=== PATIENT | female | born 1950 | race African-American/Black ===

== ENCOUNTER 2016-10-19 12:25 | Inpatient (IN) | payer OTHER, MEDICARE ==
[~2016-10-19] VITALS: Ht 160 cm; Wt 102.2 kg
--- NOTE | 2016-10-19 12:38 | ED CARDIAC/CP/PALPITATIONS ---
History of Present Illness General Chief Complaint: Chest Pain Stated Complaint: CHEST PAINS X2DAYS Source: patient, old records Exam Limitations: no limitations Allergies Coded Allergies: No Known Allergies (10/19/16) Reconcile Medications Amlodipine Besylate/Benazepril (Amlodipine-Benazepril 5-20 MG) 5 MG-20 MG CAPSULE 1 CAP PO QPM HEART (Reported) Atorvastatin Calcium 20 MG TABLET 1 TAB PO DAILY CHOLESTEROL (Reported) Carvedilol 25 MG TABLET 1 TAB PO BID HEART (Reported) Clopidogrel Bisulfate (Clopidogrel) 75 MG TABLET 1 TAB PO DAILY BLOOD THINNER (Reported) Metformin HCl (Glucophage) 1,000 MG TABLET 1 TAB PO BID DIABETES (Reported) Triage Nurses Notes Reviewed? yes HPI: Patient is a 66-year-old female presents for evaluation of chest pain. Patient reports that she's been having midsternal chest discomfort intermittently for the past 2 weeks. Chest discomfort occurs with exertion, climbing just one half flight of stairs causes onset of chest heaviness. Symptoms improve with rest. Patient reports that over the past 1 week symptoms have been worsening. Patient has associated dyspnea with exertion. Chest pain also worsens with lying flat. Pain is currently 0 out of 10. Patient took 162 mg of aspirin and 1 sublingual nitroglycerin at noon today with improvement. Patient reports bilateral lower extremity edema for a couple of months, no recent change. Chest discomfort feels similar to in 2009 when she had a myocardial infarction requiring cardiac stents. Patient's partition making machine operator is Dr. Hayes. Positive nausea earlier today. Paresthesias to bilateral hands. Denies fevers, chills, diaphoresis, vomiting. (MINERVA PARKS,KEVIN) Vital Signs & Intake/Output Vital Signs & Intake/Output Vital Signs Date Time Temp Pulse Resp B/P Pulse O2 O2 Flow FiO2 Ox Delivery Rate 10/19 1442 97.1 73 18 144/76 97 10/19 1236 98.1 73 20 125/71 97 Room Air Past History Travel History Traveled to [place] past 21 day No Medical History Any Pertinent Medical History? see below for history Cardiovascular: CAD, hypertension, hyperlipidemia, myocardial infarction, 2 STENTS Endocrine: diabetes Influenza Vaccine: 08/07/08 Surgical History Surgical History: cardiac stent x 2 Psychosocial History Who do you live with Spouse Services at Home None What is your primary language Eritrean Tobacco Use: Never used ETOH Use: denies use Illicit Drug Use: denies illicit drug use Family History Hx Contributory? No (KEVIN HARMON) Review of Systems Review of Systems Constitutional: Denies: chills, fever. EENTM: Reports: no symptoms. Respiratory: Reports: short of breath. Denies: cough, sputum production. Cardiovascular: Reports: see HPI. GI: Denies: abdominal pain, vomiting. Genitourinary: Reports: no symptoms. Musculoskeletal: Denies: back pain, neck pain. Skin: Reports: no symptoms. Neurological/Psychological: Reports: paresthesia (bilateral hands). Hematologic/Endocrine: Denies: bruising, bleeding. Immunologic/Allergic: Denies: splenectomy. (KEVIN HARMON) Physical Exam Physical Exam General Appearance: well developed/nourished, alert, awake Head: atraumatic, normal appearance Eyes: Bilateral: normal appearance, PERRL, EOMI. Ears, Nose, Throat: normal pharynx, normal ENT inspection, hearing grossly normal, moist mucus membranes Neck: normal inspection, supple, full range of motion, no appreciable carotid bruit Respiratory: normal breath sounds, chest non-tender, no respiratory distress, lungs clear Cardiovascular: regular rate/rhythm, 2/6 systolic murmur Peripheral Pulses: 2+ radial (R), 2+ radial (L) Gastrointestinal: normal bowel sounds, soft, non-tender Back: normal inspection, normal range of motion Extremities: normal inspection, normal capillary refill, normal range of motion, 1+ bilateral lower extremity edema Neurologic/Psych: no motor/sensory deficits, awake, alert, oriented x 3, normal mood/affect, precinct i police sergeant II-XII nml as tested Skin: intact, normal color, warm/dry Core Measures ACS in differential dx? Yes ASA ordered for poss ACS? Yes-ordered Severe Sepsis Present: No Septic Shock Present: No (KEVIN HARMON) Progress Differential Diagnosis: AMI, aortic dissection, atrial fibrillation, costochondritis, musculoskeletal pain, myocarditis, pericarditis, PSVT, pulmonary embolism, unstable angina, V-fib/V-Tach Diagnostic Imaging: Viewed by Me: Radiology Read. Discussed w/RAD: Radiology Read. Radiology Impression: PATIENT: RAUL MARTINEZ PRESENT AGE: 66 PATIENT ACCOUNT NO: [id number] : 51 LOCATION: [facility] ORDERING PHYSICIAN: KEVIN PARKS SERVICE DATE: 10/19/16-1246 EXAM TYPE: RAD - XRY-PORTABLE CHEST XRAY EXAMINATION: XR PORTABLE CHEST CLINICAL INFORMATION: Chest pain COMPARISON: 09/25/2009 TECHNIQUE: Portable view of the chest was obtained. FINDINGS: Large body habitus. Lungs are symmetrically expanded and clear. Cardiac silhouette is normal in size. The mediastinal and hilar contours are normal. No pneumothorax or pleural effusion. The visualized bones are intact. There appear to be some scattered artifactual opacities on the radiograph. IMPRESSION: No acute cardiopulmonary abnormalities. DICTATED BY: CHARMAINE LY MD DATE/TIME DICTATED:10/19/161316 HOME INSURANCE AGENT:KERRI DATE/TIME TRANSCRIBED:10/19/161316 CONFIDENTIAL, DO NOT COPY WITHOUT APPROPRIATE AUTHORIZATION. <Electronically signed in Other Vendor System> SIGNED BY: CHARMAINE LY MD 10/19/16 1322 Initial ED EKG: normal axis, normal intervals, normal p-waves, normal QRS complex, normal sinus rhythm, no ST T wave changes Prior EKG: changed (had ischemic changes on prior) Rhythm Strip: normal sinus rhythm (MINERVA PARKS,KEVIN) Plan of Care: Orders Procedure Date/time Status Patient Data 10/19 1444 Active Admit to inpatient 10/19 1443 Active Telemetry/Energy Efficiency Finance Manager 10/19 1247 Active TROPONIN LEVEL 10/19 1247 Complete PARTIAL THROMBOPLASTIN TIME 10/19 1247 Complete PROTHROMBIN TIME 10/19 1247 Complete COMPREHENSIVE METABOLIC PANEL 10/19 1247 Complete CBC WITHOUT DIFFERENTIAL 10/19 1247 Complete EKG 10/19 1227 Active Laboratory Tests 10/19/16 1255: Anion Gap 12, Estimated GFR > 60, BUN/Creatinine Ratio 20.0, Glucose 160 H, Calcium 9.4, Total Bilirubin 0.8, AST 17, ALT 27, Alkaline Phosphatase 69, Troponin I < 0.01, Total Protein 7.3, Albumin 3.8, Globulin 3.5, Albumin/ Globulin Ratio 1.1, PT 11.6, INR 1.11, APTT 29, CBC w Diff NO MAN DIFF REQ, RBC 4.50, MCV 87.9, MCH 29.4, RDW 15.2 H, MPV 8.0, Gran % 57.6, Lymphocytes % 33.2, Monocytes % 6.2, Eosinophils % 2.5, Basophils % 0.5, Absolute Granulocytes 2.9, Absolute Lymphocytes 1.6, Absolute Monocytes 0.3, Absolute Eosinophils 0.1, Absolute Basophils 0, PUBS MCHC 33.5 1250: Discussed with Dr. Armenta 1335: Patient resting comfortably, complaint free at this time. Awaiting results of troponin 1350: Evaluated by Dr. Armenta. Dr. Armenta to discuss case with imitation marble mechanic cardiology for disposition Dr. Armenta discussed case with Dr. Feliciano for admission to telemetry (KEVIN HARMON) Departure Departure Time of Disposition: 1506 Disposition: STILL A PATIENT Condition: Stable Clinical Impression Primary Impression: Unstable angina Referrals: SONNY LAINEZ MD (PCP/Family) Departure Forms: Customer Survey General Discharge Information Admission Note Documentation of Exam: Documentation of any treatments & extenuating circumstances including Concerns Regarding Discharge (functional status, medication knowledge or non-compliance, living conditions, etc.) that warrant an admission rather than observation: (KEVIN HARMON) Admission Note Spoke With: SHAMAR FELICIANO MD Documentation of Exam: Documentation of any treatments & extenuating circumstances including Concerns Regarding Discharge (functional status, medication knowledge or non-compliance, living conditions, etc.) that warrant an admission rather than observation: Patient presents with a chest pain syndrome consistent with unstable angina/ acute coronary syndrome. The patient is describing worsening episodes of exertional chest heaviness, she has a past history of coronary artery disease and prior myocardial infarction. Her pains are similar to her prior KS pain. The patient has multiple cardiac risk factors. Given her exertional chest pain I feel she is a poor candidate for outpatient management (I feel the exertion of outpatient treatment could potentially provoke an KS) and now requires hospitalization for continuous cardiac monitoring given the possibility of ischemia associated dysrhythmia and serial troponin determinations to rule out KS. Stress testing or cardiac catheterization should be considered given the patient's past history and clinical presentation. Patient's current medication regimen should be optimized as well. I feel she will require a multiple day hospitalization. PA/PASSPORT SUPPORT MANAGER Co-Sign Statement Statement: ED Attending supervision documentation- [X] I saw and evaluated the patient. I have also reviewed all the pertinent lab results and diagnostic results. I agree with the findings and the plan of care as documented in the PA's/PASSPORT SUPPORT MANAGER's documentation. [] I have reviewed the ED Record and agree with the PA's/PASSPORT SUPPORT MANAGER's documentation. [] Additions or exceptions (if any) to the PAs/PASSPORT SUPPORT MANAGER's note and plan are summarized below: [] (KIRAN MANZANO,MING Colby) Critical Care Note Critical Care Note Critical Care Time: non-applicable (MINERVA PARKS,KEVIN)
--- NOTE | 2016-10-19 12:39 | NUR ---
PT TO ED C/O CHEST PAIN X 2 WEEKS. DESCRIBES "TIGHTNESS" TO LEFT CHEST. ALSO C/O B/L HAND NUMBNESS X A FEW DAYS AND A RECENT HEADACHE. EKG DONE. PT STATES SHE TOOK 2 81MG ASA'S AND 1 SL NITRO AT NOON TODAY. CURRENTLY DENIES C/P. STATES SHE FEELS SOB. NO DIFF BREATHING NOTED. RA SATS 97%. PT TAKEN TO ROOM 1.
[2016-10-19] MEDS ORDERED: CARVEDILOL25 M1 PO (12:54)
[2016-10-19] MEDS ORDERED: GLUCOPHAGE1000 M1 PO (12:55)
[2016-10-19] MEDS ORDERED: ATORVASTATIN CA20 M1 PO (12:55)
[2016-10-19] MEDS ORDERED: CLOPIDOGREL75 M1 PO (12:55)
--- NOTE | 2016-10-19 12:55 | NUR ---
PT EVALUATED BY CHARLY PALMA. BLOOD DRAWN AND SENT TO LAB-SST,CARLOS,THERESA,MERIDA.
[2016-10-19] MEDS ORDERED: AMLODIPINE-BEN1 EAC2 PO (12:56)
[2016-10-19 13:00] LABS: ABSOLUTE BASOPHIL COUNT 0 /CUMM (0.0-0.2); ABSOLUTE EOSINOPHIL COUNT 0.1 /CUMM (0.0-0.7); MEAN CORPUSCULAR HGB 29.4 PG (27.0-31.0); WHITE BLOOD CELL COUNT 4.9 /CUMM (4.8-10.8)
[2016-10-19 13:03] LABS: ABSOLUTE GRANULOCYTE CT 2.9 /CUMM (1.4-6.5); ABSOLUTE LYMPH COUNT 1.6 /CUMM (1.2-3.4); ABSOLUTE MONOCYTE COUNT 0.3 /CUMM (0.10-0.60); BASOPHIL % 0.5 % (0.0-2.0); EOSINOPHIL % 2.5 % (0-5); GRANULOCYTE % 57.6 % (42.2-75.2); HEMATOCRIT 39.6 % (37-47); MEAN CORPUSCULAR HGB CONC 33.5 G/DL (33.0-37.0); MEAN CORPUSCULAR VOLUME 87.9 FL (81.0-99.0); PLATELET COUNT 317 /CUMM (130-400); RBC DISTRIBUTION WIDTH 15.2 % (11.5-14.5)
[2016-10-19 13:18] LABS: PT 11.6 SEC (9.4-12.5); PTT 29 SEC (25-37)
--- NOTE | 2016-10-19 13:22 | RADIOLOGY REPORT ---
EXAMINATION: XR PORTABLE CHEST CLINICAL INFORMATION: Chest pain COMPARISON: 09/25/2009 TECHNIQUE: Portable view of the chest was obtained. FINDINGS: Large body habitus. Lungs are symmetrically expanded and clear. Cardiac silhouette is normal in size. The mediastinal and hilar contours are normal. No pneumothorax or pleural effusion. The visualized bones are intact. There appear to be some scattered artifactual opacities on the radiograph. IMPRESSION: No acute cardiopulmonary abnormalities.
--- NOTE | 2016-10-19 15:28 | NUR ---
PT CARE ASSUMED BY THIS RN AT THIS TIME. PT VERBALIZES UNDERSTANDING OF POC. INFORMED WAITING PERFORMED, PT WAITING FOR BED ASSIGNMENT. OFFERS NO COMPLAINTS AT THIS TIME. REPEAT EKG AND TROPONIN AT 1900.
--- NOTE | 2016-10-19 15:41 | History & Physical ---
See Addendum MAUREEN MANZANO,[facility] 10/19/16 1541: General Information and [facility] MD Statement: I have seen and personally examined THERESA TRUONG and documented this H&P. The patient is a 66 year old F who presented with a patient stated chief complaint of [chest pain and shortness of breath] Source of Information: patient, old records Exam Limitations: no limitations History of Present Illness: Ms. Truong is 66 year old female with chief complaint of chest pain and shortness of breath for 2 weeks. She has past medical history of hypertension, hyperlipidemia, diabetes mellitus type 2, previous RI s/p stent in 2009. The patient started to have chest "pressure discomfort" at the center of her chest that radiated to the left side of chest and neck, pain relieved by rest and chewing 2 tablets of aspirin 81 mg. Patient reported that she started to have this pain for the last 2 weeks on exertion with 2 episodes at rest when she was sleeping and woke up because of the chest pressure pain and tightness, the pain increased in frequency and severity over the past 2 weeks but still less severe than the chest pain RI in 2009. She denied any orthopnea, syncope, dizziness, lightheadedness. The patient didn't seek any medical attention since the onset of her symptoms but today while she was shopping she started to have this chest pain and decided to call her PCP to make an appointment and subsequently he advised her to visit ED for evaluation. She also reported some tingling and numbness sensation in both hands the right side more than the left, she has past medical history of carpal tunnel syndrome that was treated with wrist splint. The patient also reported bilateral leg swelling that started 2 months ago, she has a prescription for furosemide when necessary not frequently using it, she took one dose of furosemide this morning. The patient exercises regularly, trying to do it 3 times per week. She is never a smoker, no alcohol consumption. Allergies/Medications Allergies: Coded Allergies: No Known Allergies (10/19/16) Home Med list Amlodipine Besylate/Benazepril (Amlodipine-Benazepril 5-20 MG) 5 MG-20 MG CAPSULE 1 CAP PO QPM HEART (Reported) Aspirin (Aspirin*) 81 MG TAB.CHEW 1 TAB PO DAILY HEART HEALTH (Reported) Atorvastatin Calcium 20 MG TABLET 1 TAB PO DAILY CHOLESTEROL (Reported) Carvedilol 25 MG TABLET 1 TAB PO BID HEART (Reported) Clopidogrel Bisulfate (Clopidogrel) 75 MG TABLET 1 TAB PO DAILY BLOOD THINNER (Reported) Past History Travel History Traveled to [place] past 21 day No Medical History Cardiovascular: CAD, hypertension, hyperlipidemia, myocardial infarction, 2 STENTS Endocrine: diabetes Influenza Vaccine: 08/07/08 Surgical History Surgical History: cardiac stent x 2 Past Family/Social History Psychosocial History Services at Home: None ETOH Use: denies use Illicit Drug Use: denies illicit drug use Review of Systems Review of Systems Constitutional: Reports: malaise. Denies: chills, fever. EENTM: Denies: blurred vision, hearing changes, nasal congestion. Cardiovascular: Reports: chest pain, edema. Denies: orthopena, palpitations, syncope. Respiratory: Reports: short of breath. Denies: cough, wheezing. GI: Reports: nausea. Denies: abdominal pain, constipation, diarrhea, vomiting. Genitourinary: Denies: dysuria, hematuria. Musculoskeletal: Denies: back pain, joint pain. Skin: Denies: change in skin color, rash. Neurological/Psychological: Reports: headache. Denies: anxiety. Hematologic/Endocrine: Denies: bruising, bleeding. Exam & Diagnostic Data Last 24 Hrs of Vital Signs/I&O Vital Signs Date Time Temp Pulse Resp B/P Pulse O2 O2 Flow FiO2 Ox Delivery Rate 10/19 1442 97.1 73 18 144/76 97 10/19 1236 98.1 73 20 125/71 97 Room Air Intake & Output 10/19 1600 10/19 0800 10/19 0000 Intake Total Output Total Balance Patient 104.326 kg Weight Physical Exam General Appearance Alert, Oriented X3, Cooperative, No Acute Distress Skin No Rashes, No Breakdown, No Significant Lesion HEENT Atraumatic, PERRLA, EOMI, Mucous Membr. moist/pink Neck Supple, No JVD, No thryomegaly Lymphatic no cervical lymphadenopathy Cardiovascular Regular Rate, Normal S1, Normal S2, No Murmurs Lungs Clear to Auscultation, Normal Air Movement Abdomen Normal Bowel Sounds, Soft, No Tenderness Neurological Normal Gait, Normal Speech, Strength at 5/5 X4 Ext, Normal Tone, Sensation Intact, Cranial Nerves 3-12 NL, Reflexes 2+ Extremities No Clubbing, No Cyanosis, trace bilateral periphral edema Vascular Normal Pulses Assessment/Plan Assessment: Ms. Meier is a very pleasant lady with past medical history of hypertension, hyperlipidemia, diabetes mellitus type 2, previous RI status post stent 2009. She presented with chest pain and shortness of breath that started 2 weeks ago and increasing in frequency and severity. On admission her vital signs were temperature 97.1, pulse 73, blood pressure 144 /76, respiratory rate 18 on room air saturation 97% Labs are within normal EKG sinus rhythm 70 bpm Chest x-ray showed no cardiopulmonary abnormality Problem list #Unstable angina vs NSTEMI #Hypertension and hyperlipidemia #Diabetes mellitus 2 #Unstable angina vs NSTEMI -admit to telemetry -Aspirin 81 mg daily -nitroglycrine topical onit -continue Atrovostatin 20 mg daily -continue clopidogril 75 mg daily -start anticoagulation Lovenox -check troponin and EKG Q6 -Obtain echo -Obtain cardic consulation #Hypertension and hyperlipidemia -patient is on amilodipine/Benzopril 5/20 mg daily -continue Atrovostatin 20 mg daily -continue amlodipine 5 mg daily -Start lisinopril 10 mg daily -monitor BP and HR #Diabetes mellitus type 2 -Accu check AC and bedtime -novolog sliding scale -levemir 4 units BID -Last HA1C in was 6 Diet heart healthy diet DVT propholaxis [employer] Code FULL As Ranked By This Provider Problem List: 1. Unstable angina 2. NSTEMI (non-ST elevated myocardial infarction) Core Measures/Miscellaneous Acute Coronary Syndrome ACS Diagnosis: No Cerebrovascular Accident CVA/TIA Diagnosis: No Congestive Heart Failure CHF Diagnosis: No Venous Thromboembolism VTE Risk Factors: Age > 40 VTE Prophylaxis Ordered Inpt: Pharm- Lovenox No [facility] VTE prophylaxis d/t: No contraindications No VTE Pharm Prophylaxis d/t: No contraindications VTE Diagnosis: No VTE Type: NONE VTE Confirmed by (Test): NONE Severe Sepsis Severe Sepsis Present: No Septic Shock Septic Shock Present: No Miscellaneous Documentation Attending Case Discussed With: SHAMAR FELICIANO MD Primary Care Physician: SONNY LAINEZ MD Patient sees these Specialists Cardiology Level of Patient Care: Telemetry HUONG MATA MD 10/19/16 1541: Resident Review Statement Resident Statement: examined this patient, discussed with pharmacist intern, agreed with pharmacist intern, discussed with family, reviewed EMR data (avail), discussed with nursing , discussed with case mgmt, reviewed images, amended to note Other Findings: Theresa is 66-year-old woman with medical history of known coronary artery disease , ST elevation myocardial infarction the past requiring urgent cath (October 2009) with placement of 2 intracardiac stents, dyslipidemia and Type 2 diabetes on metformin who now presents with typical chest pain symptoms that resolved with rest, accompanied by nausea her vital signs are stable. She is afebrile blood pressure is 144/76 meters mercury and she saturating 97% on room air. Physical exam above. Labs are unremarkable, first set of troponin EKG is negative for changes suggestive of ischemia. Given this patient's positive history, she should be ruled out. She does have risk factors including female sex and diabetes as well as known coronary disease and previous infarction. - Problems - Acute chest pain syndrome Stable Angina Known coronary artery disease with previous STEMI Type 2 diabetes - Plan - Continues cardiac monitoring Obtain serial enzymes and EKG Daily aspirin Continue cardiac medications Await cardiology consultation DVT prophylaxis with Lovenox Full code
--- NOTE | 2016-10-19 15:49 | NUR ---
HOUSE STAFF TO BEDSIDE FOR EVAL.
--- NOTE | 2016-10-19 17:17 | NUR ---
PT SITTING UP EATING DINNER AT THIS TIME. CONTINUES NSR ON THE MONITOR, OFFERS NO COMPLAINTS AT THIS TIME.
[2016-10-19] MEDS ORDERED: ASPIRIN81 M4 PO (17:39)
--- NOTE | 2016-10-19 18:10 | Cons- Cardiology ---
General Information and HPI Consulting Request Date of Consult: 10/19/16 Requested By: KEVIN PALMA PA Reason for Consult: Recurrent exertional chest pain. Source of Information: patient, old records Exam Limitations: no limitations History of Present Illness: Mrs. Theresa Armijo is a 66-year-old -[place]er female with a history of obesity, hypertension, dyslipidemia, diabetes mellitus, and coronary artery disease who we are asked to evaluate and help manage in regard to episodes of recurrent chest discomfort. She states that she had been in her usual state of health until approximately 2 weeks ago when she began having recurrent episodes of exertional chest discomfort that would typically resolve within a few minutes of her discontinuing the activity responsible for symptom onset. On a few occasions she also recalls being awakened from sleep with a "heartburn- like" sensation in her chest that would improve after she sat up. This she thinks was different than what she has been experiencing with exertion. On at least one occasion she also had radiation of the discomfort to her neck and to her jaw. She also states that on a few occasions she has awakened with "tingling" in her hands. Mrs. Armijo was admitted to [facility] (09/25-09/26/2009) for recurrent chest discomfort and at that time had no acute electrocardiographic changes, no evidence of myocardial necrosis by serial cardiac enzymes, and a predischarge negative imaging stress test. She again presented to the ED on 10/09/2009 with an acute anterior wall myocardial infarction and was transferred emergently to [facility] where she underwent a percutaneous coronary intervention with drug- eluting stents placed presumably to her left anterior descending artery. Further details of this admission are not presently available. She is routinely followed-up for her cardiac issues by her [place] tube heater (Nathan Devlin M.D.). She states that prior to undergoing uneventful total left knee replacement in March 2016 she had surgical clearance following a negative imaging stress test. Allergies/Medications Allergies: Coded Allergies: No Known Allergies (10/19/16) Home Med List: Amlodipine Besylate/Benazepril (Amlodipine-Benazepril 5-20 MG) 5 MG-20 MG CAPSULE 1 CAP PO QPM HEART (Reported) Aspirin (Aspirin*) 81 MG TAB.CHEW 1 TAB PO DAILY HEART HEALTH (Reported) Atorvastatin Calcium 20 MG TABLET 1 TAB PO DAILY CHOLESTEROL (Reported) Carvedilol 25 MG TABLET 1 TAB PO BID HEART (Reported) Clopidogrel Bisulfate (Clopidogrel) 75 MG TABLET 1 TAB PO DAILY BLOOD THINNER (Reported) Review of Systems Review of Systems: A 14 point system review was obtained and was noncontributory other than for the fact the patient wears glasses, has intermittent bronchitis, intermittent musculoskeletal discomfort, and easy bruisability. Past History Travel History Traveled to [place] past 21 day No Medical History Cardiovascular: CAD, hypertension, hyperlipidemia, myocardial infarction, 2 STENTS Endocrine: diabetes Surgical History Surgical History: hernia repair-inguinal, knee replacement, cardiac stent x 2 Family History Family History Reviewed? Father: smoked and succumbed to lung ca at 76 years. Sister: Suffered a disabling stroke in her 40s. Psychosocial History Where Do You Live? Home Who Do You Live With? spouse Services at Home: None Primary Language: Luxembourger Smoking Status: Never Smoked ETOH Use: occasional use Illicit Drug Use: denies illicit drug use Exam & Diagnostic Data Vital Signs and I&O Vital Signs Date Time Temp Pulse Resp B/P Pulse O2 O2 Flow FiO2 Ox Delivery Rate 10/19 1753 97.8 81 18 141/67 98 Room Air 10/19 1442 97.1 73 18 144/76 97 10/19 1236 98.1 73 20 125/71 97 Room Air Intake & Output 10/19 1600 10/19 0800 10/19 0000 10/18 1600 10/18 0800 10/18 0000 Intake Total Output Total Balance Patient 230 lb Weight Physical Exam: Well-developed, overweight -[place] female in no acute distress with nasal oxygen in place. Vital signs: See above. HEENT: Normocephalic, atraumatic, EOMI, moist. His membranes. Neck: No JVD, no bruits. Lungs: Clear to auscultation bilaterally. Heart: S1, S2 with soft (grade 1/6) systolic murmur. No gallop or rub appreciated. PMI not well felt. Abdomen: Soft, nontender, positive bowel sounds. Extremities: No edema. Labs/Davide Results: Laboratory Tests 10/19 1255 Chemistry Sodium (137 - 145 mmol/L) 140 Potassium (3.5 - 5.1 mmol/L) 3.9 Chloride (98 - 107 mmol/L) 99 Carbon Dioxide (22 - 30 mmol/L) 29 Anion Gap (5 - 16) 12 BUN (7 - 17 mg/dL) 16 Creatinine (0.5 - 1.0 mg/dL) 0.8 Estimated GFR (>60 ml/min) > 60 BUN/Creatinine Ratio (7 - 25 %) 20.0 Glucose (65 - 99 mg/dL) 160 H Calcium (8.4 - 10.2 mg/dL) 9.4 Total Bilirubin (0.2 - 1.3 mg/dL) 0.8 AST (14 - 36 U/L) 17 ALT (9 - 52 U/L) 27 Alkaline Phosphatase (<127 U/L) 69 Troponin I (< 0.11 ng/ml) < 0.01 Total Protein (6.3 - 8.2 g/dL) 7.3 Albumin (3.5 - 5.0 g/dL) 3.8 Globulin (1.9 - 4.2 gm/dL) 3.5 Albumin/Globulin Ratio (1.1 - 2.2 %) 1.1 Coagulation PT (9.4 - 12.5 SEC) 11.6 INR (0.90 - 1.19) 1.11 APTT (25 - 37 SEC) 29 Hematology CBC w Diff NO MAN DIFF REQ WBC (4.8 - 10.8 /CUMM) 4.9 RBC (4.20 - 5.40 /CUMM) 4.50 Hgb (12.0 - 16.0 G/DL) 13.2 Hct (37 - 47 %) 39.6 MCV (81.0 - 99.0 FL) 87.9 MCH (27.0 - 31.0 PG) 29.4 RDW (11.5 - 14.5 %) 15.2 H Plt Count (130 - 400 /CUMM) 317 MPV (7.4 - 10.4 FL) 8.0 Gran % (42.2 - 75.2 %) 57.6 Lymphocytes % (20.5 - 51.1 %) 33.2 Monocytes % (1.7 - 9.3 %) 6.2 Eosinophils % (0 - 5 %) 2.5 Basophils % (0.0 - 2.0 %) 0.5 Absolute Granulocytes (1.4 - 6.5 /CUMM) 2.9 Absolute Lymphocytes (1.2 - 3.4 /CUMM) 1.6 Absolute Monocytes (0.10 - 0.60 /CUMM) 0.3 Absolute Eosinophils (0.0 - 0.7 /CUMM) 0.1 Absolute Basophils (0.0 - 0.2 /CUMM) 0 PUBS MCHC (33.0 - 37.0 G/DL) 33.5 Diagnostic Data EKG Results (10/19/2016) sinus rhythm, probable old anteroseptal wall myocardial infarction. Improved since previous tracing (10/09/2009). CXR Results (10/19/2016) no acute process. Assessment/Plan Assessment/Plan Unstable angina pectoris in this 66-year-old -[place] female with a history of known coronary artery disease s/p anterior STEMI 10/09/2009 with PCI (DESx2 to LAD) with a risk equivalent/multiple risk factors for coronary artery disease. The discomfort she has been having on occasion that awakens her from sleep and improves following her sitting up, sounds more consistent with gastroesophageal reflux. Recommendations: * Agree with the need for observation on telemetry, follow-up troponins, follow- up electrocardiograms. * We will contact her tube heater (Nathan Devlin M.D.) to determine if he will accept transfer from our facility to either [facility] or [facility] for further evaluation/management after her preliminary evaluation/management. * Would start on IV Heparin (or enoxaparin). * Continue on the rest of her cardiac regimen (statin, antiplatelet, MICHAEL inhibitor, and beta devaughn). * Schedule for echocardiogram to assess left ventricular systolic/diastolic function, degree of left ventricular hypertrophy, wall motion abnormalities, etc. * Check glycosylated hemoglobin A1c, free T4, TSH, and magnesium level. * Aim to maintain her potassium between 4.0-4.5 mEq per liter and magnesium at or above 2.0 mEq per liter. * IV Heparin will additionally serve as prophylaxis for deep venous thrombosis. Further recommendations will follow, Thank you. Consult Acknowledgment - Thank you for your consult request.
[2016-10-19 18:54] VITALS: BP 130/70
[2016-10-19 23:52] VITALS: BP 118/78
--- NOTE | 2016-10-20 06:39 | PN- Housestaff ---
Subjective Follow-up For: Acute chest pain syndrome Stable Angina Known coronary artery disease with previous STEMI Type 2 diabetes Subjective: Doing well. No acute complaints or events overnight. Review of Systems Constitutional: Denies: see HPI. Objective Last 24 Hrs of Vital Signs/I&O Vital Signs Date Time Temp Pulse Resp B/P Pulse O2 O2 Flow FiO2 Ox Delivery Rate 10/19 2352 98.7 71 18 118/78 96 Room Air 10/19 2146 83 10/19 1854 98.5 76 18 130/70 95 10/19 1834 Room Air 10/19 1753 97.8 81 18 141/67 98 Room Air 10/19 1442 97.1 73 18 144/76 97 10/19 1236 98.1 73 20 125/71 97 Room Air Intake & Output 10/20 0800 10/20 0000 10/19 1600 Intake Total 60 490 Output Total Balance 60 490 Intake, IV 10 10 Intake, Oral 50 480 Patient 230 lb 230 lb Weight Physical Exam General Appearance: Alert, Oriented X3, Cooperative Other Physical Findings: Skin No Rashes, No Breakdown, No Significant Lesion HEENT Atraumatic, PERRLA, EOMI, Mucous Membr. moist/pink Neck Supple, No JVD, No thryomegaly Lymphatic no cervical lymphadenopathy Cardiovascular Regular Rate, Normal S1, Normal S2, No Murmurs Lungs Clear to Auscultation, Normal Air Movement Abdomen Normal Bowel Sounds, Soft, No Tenderness Neurological Normal Gait, Normal Speech, Strength at 5/5 X4 Ext, Normal Tone, Sensation Intact, Cranial Nerves 3-12 NL, Reflexes 2+ Extremities No Clubbing, No Cyanosis, trace bilateral periphral edema Vascular Normal Pulses Current Medications: Current Medications Sig/Isabelle Start time Last Medication Dose Route Stop Time Status Admin Acetaminophen 650 MG Q6P PRN 10/19 1530 AC PO Amlodipine Besylate 5 MG DAILY 10/20 1000 AC PO Aspirin 81 MG DAILY 10/20 1000 AC PO Aspirin 0 .STK-MED ONE 10/19 1313 DC PO Aspirin 162 MG ONCE ONE 10/19 1300 DC 10/19 PO 10/19 1301 1320 Atorvastatin Calcium 20 MG DAILY 10/20 1000 AC PO Carvedilol 25 MG BID 10/19 2200 AC 10/19 PO 2146 Clopidogrel Bisulfate 75 MG DAILY 10/20 1000 AC PO Diphenhydramine HCl 25 MG Q6P PRN 10/19 1530 AC PO Docusate Sodium 100 MG BID 10/19 2200 AC PO Enoxaparin Sodium 0 .STK-MED ONE 10/19 1652 DC SC Enoxaparin Sodium 40 MG DAILY 10/19 1522 AC SC Insulin Aspart 0 TIDAC 10/19 1700 AC SC Insulin Detemir 5 UNITS BID 10/19 2200 AC 10/19 SC 2146 Ketorolac 15 MG Q6P PRN 10/19 1530 AC Tromethamine IV Lisinopril 10 MG DAILY 10/20 1000 AC PO Metformin HCl 1,000 MG BID 10/19 2200 CAN PO Morphine Sulfate 4 MG Q4P PRN 10/19 1530 AC IV Nitroglycerin 1 GM Q6 PRN 10/19 1600 AC TOP Polyethylene Glycol 17 GM AT BEDTIME 10/19 2200 AC PO Prochlorperazine 10 MG Q6P PRN 10/19 1530 AC IV Senna/Docusate Sodium 1 TAB AT BEDTIME 10/19 2200 AC PO Last 24 Hrs of Lab/Davide Results Last 24 Hrs of Labs/Mics: Laboratory Tests 10/20/16 0138: Troponin I < 0.01 10/19/16 1935: Troponin I < 0.01 10/19/16 1255: Anion Gap 12, Estimated GFR > 60, BUN/Creatinine Ratio 20.0, Glucose 160 H, Calcium 9.4, Total Bilirubin 0.8, AST 17, ALT 27, Alkaline Phosphatase 69, Troponin I < 0.01, Total Protein 7.3, Albumin 3.8, Globulin 3.5, Albumin/ Globulin Ratio 1.1, PT 11.6, INR 1.11, APTT 29, CBC w Diff NO MAN DIFF REQ, RBC 4.50, MCV 87.9, MCH 29.4, RDW 15.2 H, MPV 8.0, Gran % 57.6, Lymphocytes % 33.2, Monocytes % 6.2, Eosinophils % 2.5, Basophils % 0.5, Absolute Granulocytes 2.9, Absolute Lymphocytes 1.6, Absolute Monocytes 0.3, Absolute Eosinophils 0.1, Absolute Basophils 0, PUBS MCHC 33.5 Assessment/Plan Assessment: Theresa is 66-year-old woman with medical history of known coronary artery disease , ST elevation myocardial infarction the past requiring urgent cath (October 2009) with placement of 2 intracardiac stents, dyslipidemia and Type 2 diabetes on metformin who now presents with typical chest pain symptoms that resolved with rest, accompanied by nausea her vital signs are stable. She is afebrile blood pressure is 144/76 meters mercury and she saturating 97% on room air. Physical exam above. Labs are unremarkable, first set of troponin EKG is negative for changes suggestive of ischemia. Given this patient's positive history, she should be ruled out. She does have risk factors including female sex and diabetes as well as known coronary disease and previous infarction. Enzymes and EKGs - x 3. No sx. Labs pending this am. - Problems - Acute chest pain syndrome Stable Angina Known coronary artery disease with previous STEMI Type 2 diabetes - Plan - Continues cardiac monitoring Daily aspirin F/u labs Continue cardiac medications Await cardiology consultation and formal recs Anticipate DC soon DVT prophylaxis with Lovenox Full code Problem List: 1. Angina pectoris Pain Ratin Pain Location: n/a Pain Goal: Pain 7 or less Pain Plan: n/a Tomorrow's Labs & Rationales: n/a
[2016-10-20 08:27] VITALS: BP 124/70
[2016-10-20 16:08] VITALS: BP 100/68
--- NOTE | 2016-10-20 19:36 | PN- Cardiology ---
Subjective Subjective: No complaints and denies any further exertional anginal type discomfort, but has been relatively sedentary since admission. Objective Vital Signs and I&Os Vital Signs Date Time Temp Pulse Resp B/P Pulse O2 O2 Flow FiO2 Ox Delivery Rate 10/20 1608 98.0 68 18 100/68 95 Room Air 10/20 0940 64 124/70 10/20 0939 64 124/70 10/20 0939 64 124/70 10/20 0827 97.6 64 18 124/70 94 Room Air 10/20 0800 Room Air 10/19 2352 98.7 71 18 118/78 96 Room Air 10/19 2146 83 Intake & Output 10/20 1600 10/20 0800 10/20 0000 10/19 1600 10/19 0800 10/19 0000 Intake Total 600 60 490 Output Total Balance 600 60 490 Intake, IV 10 10 Intake, Oral 600 50 480 Patient 230 lb 230 lb Weight Physical Exam: Well-developed, overweight -[place] female in no acute distress with nasal oxygen in place. Vital signs: See above. HEENT: Normocephalic, atraumatic, EOMI, moist. His membranes. Neck: No JVD, no bruits. Lungs: Clear to auscultation bilaterally. Heart: S1, S2 with soft (grade 1/6) systolic murmur. No gallop or rub appreciated. PMI not well felt. Abdomen: Soft, nontender, positive bowel sounds. Extremities: No edema. Current Medications: Current Medications Sig/Isabelle Start time Last Medication Dose Route Stop Time Status Admin Acetaminophen 650 MG Q6P PRN 10/19 1530 AC PO Amlodipine Besylate 5 MG DAILY 10/20 1000 AC 10/20 PO 0939 Aspirin 81 MG DAILY 10/20 1000 AC 10/20 PO 0938 Atorvastatin Calcium 20 MG DAILY 10/20 1000 AC 10/20 PO 0939 Carvedilol 25 MG BID 10/19 2200 AC 10/20 PO 0939 Clopidogrel Bisulfate 75 MG DAILY 10/20 1000 AC 10/20 PO 0940 Diphenhydramine HCl 25 MG Q6P PRN 10/19 1530 AC PO Docusate Sodium 100 MG BID 10/19 2200 AC PO Enoxaparin Sodium 40 MG DAILY 10/19 1522 DC SC Heparin Sodium 5,000 UNIT ONCE ONE 10/20 1630 DC 10/20 (Porcine) IV 10/20 1631 1727 Heparin Sodium 25,000 UNIT Q24H 10/20 1630 AC 10/20 (Porcine) IV 1734 Sodium Chloride 500 ML Insulin Aspart 0 TIDAC 10/19 1700 AC 10/20 SC 1727 Insulin Detemir 5 UNITS BID 10/19 2200 AC 10/20 SC 0939 Ketorolac 15 MG Q6P PRN 10/19 1530 AC Tromethamine IV Lisinopril 10 MG DAILY 10/20 1000 AC 10/20 PO 0940 Magnesium Oxide 400 MG ONE ONE 10/20 1615 DC 10/20 PO 10/20 1616 1736 Morphine Sulfate 4 MG Q4P PRN 10/19 1530 AC IV Nitroglycerin 1 GM Q6 PRN 10/19 1600 AC TOP Polyethylene Glycol 17 GM AT BEDTIME 10/19 2200 AC PO Prochlorperazine 10 MG Q6P PRN 10/19 1530 AC IV Senna/Docusate Sodium 1 TAB AT BEDTIME 10/19 2200 AC PO Results Last 48 Hrs of Labs/Mics: Laboratory Tests 10/20/16 0700: Anion Gap 11, Estimated GFR > 60, BUN/Creatinine Ratio 17.5, Magnesium 1.4 L, Troponin I < 0.01 10/20/16 0138: Troponin I < 0.01 10/19/16 1935: Troponin I < 0.01 10/19/16 1255: Anion Gap 12, Estimated GFR > 60, BUN/Creatinine Ratio 20.0, Glucose 160 H, Calcium 9.4, Total Bilirubin 0.8, AST 17, ALT 27, Alkaline Phosphatase 69, Troponin I < 0.01, Total Protein 7.3, Albumin 3.8, Globulin 3.5, Albumin/ Globulin Ratio 1.1, PT 11.6, INR 1.11, APTT 29, CBC w Diff NO MAN DIFF REQ, RBC 4.50, MCV 87.9, MCH 29.4, RDW 15.2 H, MPV 8.0, Gran % 57.6, Lymphocytes % 33.2, Monocytes % 6.2, Eosinophils % 2.5, Basophils % 0.5, Absolute Granulocytes 2.9, Absolute Lymphocytes 1.6, Absolute Monocytes 0.3, Absolute Eosinophils 0.1, Absolute Basophils 0, PUBS MCHC 33.5 Assessment/Plan Assessment/Plan Unstable angina pectoris in this 66-year-old -[place] female with a history of known coronary artery disease s/p anterior STEMI 10/09/2009 with PCI (DESx2 to LAD) with a risk equivalent/multiple risk factors for coronary artery disease. Fortunately, troponins did not suggest any evidence of myocardial necrosis and her electrocardiograms have shown no acute ischemic changes. Recommendations: * Continue on telemetry. * We will contact her district plant engineer (Nathan Devlin M.D.) to determine if he will accept transfer from our facility to either [facility] or [facility] for further evaluation/management after her preliminary evaluation/management. * Continue on IV Heparin (or enoxaparin). * Continue on the rest of her cardiac regimen (statin, antiplatelet, MICHAEL inhibitor, and beta devaughn). * Schedule for echocardiogram to assess left ventricular systolic/diastolic function, degree of left ventricular hypertrophy, wall motion abnormalities, etc. * Check glycosylated hemoglobin A1c, free T4, TSH, and magnesium level. * Aim to maintain her potassium between 4.0-4.5 mEq per liter and magnesium at or above 2.0 mEq per liter. Continue telemetry? Yes
[2016-10-20 22:00] VITALS: BP 130/80
[2016-10-21 00:15] LABS: PTT 75 SEC (25-37)
--- NOTE | 2016-10-21 07:51 | PN- Housestaff ---
See Addendum Subjective Follow-up For: Acute chest pain syndrome Stable Angina Known coronary artery disease with previous STEMI Type 2 diabetes Tele-Events Since Last Visit: Atrial fibrillation, converted to sinus tachycardia at 3:06 AM flutter, fibrillation, sinus Sinus tachycardia since 16 00 93-135 no overnight events Subjective: Ms Truong was seen and examined this morning resting comfortably seated upright in bed. Patient states she was comfortable overnight however woke up at approximately 2 AM was woken with significant left-sided chest pain. Chest pain episode lasted approximately 1 hour and has subsequently resolved. Pain was an 8 out of 10 in severity describes a pressure/crushing pain. Patient did not report pain to any of the nursing staff. Currently patient is pain-free. Patient denies any fever, chills, nausea, vomiting. Review of Systems Constitutional: Reports: see HPI. Denies: chills, diaphoresis, fever. Objective Last 24 Hrs of Vital Signs/I&O Vital Signs Date Time Temp Pulse Resp B/P Pulse O2 O2 Flow FiO2 Ox Delivery Rate 10/21 0802 97.6 62 20 160/80 94 Room Air 10/21 0800 Room Air 10/20 2254 67 130/80 10/20 2200 98.4 67 20 130/80 97 Room Air 10/20 1608 98.0 68 18 100/68 95 Room Air 10/20 0940 64 124/70 10/20 0939 64 124/70 10/20 0939 64 124/70 Intake & Output 10/21 1600 10/21 0800 10/21 0000 Intake Total 100 965 Output Total Balance 100 965 Intake, IV 45 Intake, Oral 100 920 Patient 102.228 kg Weight Physical Exam General Appearance: Alert, Oriented X3, Cooperative Cardiovascular: Normal S1, Normal S2, No Murmurs Lungs: Clear to Auscultation Abdomen: Normal Bowel Sounds, Soft, No Tenderness Neurological: Normal Speech, Strength at 5/5 X4 Ext Current Medications: Current Medications Sig/Isabelle Start time Last Medication Dose Route Stop Time Status Admin Acetaminophen 650 MG Q6P PRN 10/19 1530 AC PO Amlodipine Besylate 5 MG DAILY 10/20 1000 AC 10/21 PO 1020 Aspirin 81 MG DAILY 10/20 1000 AC 10/21 PO 1020 Atorvastatin Calcium 20 MG DAILY 10/20 1000 AC 10/21 PO 1020 Carvedilol 25 MG BID 10/19 2200 AC 10/21 PO 1020 Clopidogrel Bisulfate 75 MG DAILY 10/20 1000 AC 10/21 PO 1020 Diphenhydramine HCl 25 MG Q6P PRN 10/19 1530 AC PO Docusate Sodium 100 MG BID 10/19 2200 AC 10/21 PO 1020 Enoxaparin Sodium 40 MG DAILY 10/19 1522 DC SC Heparin Sodium 5,000 UNIT ONCE ONE 10/20 1630 DC 10/20 (Porcine) IV 10/20 1631 1727 Heparin Sodium 25,000 UNIT Q24H 10/20 1630 AC 10/20 (Porcine) IV 1734 Sodium Chloride 500 ML Insulin Aspart 0 TIDAC 10/19 1700 AC 10/21 SC 0806 Insulin Detemir 5 UNITS BID 10/19 2200 AC 10/21 SC 1021 Ketorolac 15 MG Q6P PRN 10/19 1530 AC Tromethamine IV Lisinopril 10 MG DAILY 10/20 1000 AC 10/21 PO 1020 Magnesium Oxide 400 MG ONE ONE 10/20 1615 DC 10/20 PO 10/20 1616 1736 Magnesium Sulfate 1 GM Q2H 10/21 1000 AC 10/21 Dextrose/Water 100 ML IV 10/21 1359 1156 Morphine Sulfate 4 MG Q4P PRN 10/19 1530 AC IV Nitroglycerin 1 GM Q6 PRN 10/19 1600 AC TOP Polyethylene Glycol 17 GM AT BEDTIME 10/19 2200 AC PO Potassium Chloride 40 MEQ ONCE ONE 10/21 1000 DC 10/21 PO 10/21 1001 1129 Prochlorperazine 10 MG Q6P PRN 10/19 1530 AC IV Senna/Docusate Sodium 1 TAB AT BEDTIME 10/19 2200 AC PO Last 24 Hrs of Lab/Davide Results Last 24 Hrs of Labs/Mics: Laboratory Tests 10/21/16 1100: APTT 80 H 10/21/16 0700: Hemoglobin A1c Pending 10/21/16 0700: Anion Gap 12, Estimated GFR > 60, BUN/Creatinine Ratio 17.5, Magnesium 1.6, TSH 3.430, Free T4 1.05 10/20/16 2330: APTT 75 H Assessment/Plan Assessment: Theresa is 66-year-old woman with medical history of known coronary artery disease , ST elevation myocardial infarction the past requiring urgent cath (October 2009) with placement of 2 intracardiac stents, dyslipidemia and Type 2 diabetes on metformin who now presents with typical chest pain symptoms that resolved with rest, accompanied by nausea her vital signs are stable. She is afebrile blood pressure is 144/76 meters mercury and she saturating 97% on room air. Physical exam above. Labs are unremarkable, first set of troponin EKG is negative for changes suggestive of ischemia. Given this patient's positive history, she should be ruled out. She does have risk factors including female sex and diabetes as well as known coronary disease and previous infarction. She was encouraged to notify us if she developed any additional pain. Spoke with the cardiology service recommended a pharmacological stress test to be done at [facility]. This can be considered on 10/22/2016. Patient was given potassium chloride 40 mEq and magnesium sulfate to ensure her electrolytes were within normal physiological limits. Enzymes and EKGs - x 3. No sx. Labs pending this am. - Problems - Acute chest pain syndrome Stable Angina Known coronary artery disease with previous STEMI Type 2 diabetes - Plan - Continues cardiac monitoring Daily aspirin F/u labs Continue cardiac medications Await cardiology consultation and formal recs Anticipate DC soon DVT prophylaxis with Lovenox Full code Problem List: 1. Angina pectoris 2. Unstable angina 3. NSTEMI (non-ST elevated myocardial infarction) Pain Ratin Pain Location: No Pain Reported Pain Goal: Remain pain free Pain Plan: Tylenol PRN Nirtoglycerine Tomorrow's Labs & Rationales: BEP: Monitor K Magnesium: Monitor Magnesium
[2016-10-21 08:02] VITALS: BP 160/80
[2016-10-21 11:26] LABS: PTT 80 SEC (25-37)
--- NOTE | 2016-10-21 14:44 | Event Note ---
Event Note Event Note: Following recommendations from sliver lap tender note 10/20/2006. I contacted the office of Dr. Vallecillo and requested a call back. Dr. Santillan partner of Dr. Vallecillo recommended that the patient need not be transferred at the moment to [facility], however he recomended the patinet have a pahrmacological stress test while admitted at [facility]. Resident was made aware We will follow up to wait for cardiac recommendations on 10/21/2016.
[2016-10-21 16:00] VITALS: BP 112/80
[2016-10-21 23:14] LABS: PTT 93 SEC (25-37)
[2016-10-21 23:54] VITALS: BP 110/66
[2016-10-22 05:54] LABS: PTT 63 SEC (25-37)
[2016-10-22 08:08] VITALS: BP 116/60
--- NOTE | 2016-10-22 08:36 | PN- Housestaff ---
Subjective Follow-up For: Acute chest pain syndrome Unstable Angina Known coronary artery disease with previous STEMI Type 2 diabetes Tele-Events Since Last Visit: Sinus rhythm Heart rate 69-87 BBB No evidence Subjective: Patient was seen and examined this morning, she didn't report any chest pain overnight although she had some chest pain that woke her up the night before. She slept well with no complaint, denied any shortness of breath, dizziness, lightheadedness, nausea. Vital signs are stable. No overnight events reported by the nurses. Review of Systems Constitutional: Denies: no symptoms. Objective Last 24 Hrs of Vital Signs/I&O Vital Signs Date Time Temp Pulse Resp B/P Pulse O2 O2 Flow FiO2 Ox Delivery Rate 10/22 09 75 116/60 10/22 0921 75 116/60 10/22 0921 75 116/60 10/22 0808 98.1 75 18 116/60 96 Room Air 10/22 0800 Room Air 10/21 2354 97.5 69 12 110/66 95 Room Air 10/21 2136 89 10/21 1600 97.9 63 18 112/80 93 Room Air Intake & Output 10/22 1600 10/22 0800 10/22 0000 Intake Total 367.2 1419 Output Total Balance 367.2 1419 Intake, IV 127.2 354 Intake, Oral 240 1065 Physical Exam General Appearance: Alert, Oriented X3, Cooperative, No Acute Distress Skin: No Rashes, No Breakdown, No Significant Lesion HEENT: Atraumatic, PERRLA, EOMI, Mucous Membr. moist/pink Neck: Supple, No JVD Cardiovascular: Regular Rate, Normal S1, Normal S2, No Murmurs Lungs: Clear to Auscultation, Normal Air Movement Abdomen: Normal Bowel Sounds, Soft, No Tenderness Neurological: Normal Gait, Normal Speech, Strength at 5/5 X4 Ext, Normal Tone, Sensation Intact, Cranial Nerves 3-12 NL, Reflexes 2+ Extremities: No Clubbing, No Cyanosis, right trace edema Left +1 edema Assessment/Plan Assessment: Ms. Meier is a very pleasant lady with past medical history of hypertension, hyperlipidemia, diabetes mellitus type 2, previous VT status post stent 2009. She presented with chest pain and shortness of breath that started 2 weeks ago and increasing in frequency and severity. on admission EKG sinus rhythm 70 bpm Chest x-ray showed no cardiopulmonary abnormality Problem list #Unstable angina vs NSTEMI #Hypertension and hyperlipidemia #Diabetes mellitus 2 #Unstable angina vs NSTEMI -continue telemetry -Nuclear stress test was ordered, and patient will have the resting part done today and the stress part tomorrow -Continue heparin drip -Continue carvedilol 25 mg twice a day by mouth -Continue Aspirin 81 mg daily -Continue clopidogril 75 mg daily -Continue nitroglycerin ointment 1 g every 6 when necessary for chest pain -Maintain potassium 4 to 4.5, MG 2 or above #Hypertension and hyperlipidemia -continue Atrovostatin 20 mg daily -continue amlodipine 5 mg daily -Continue lisinopril 10 mg daily #Diabetes mellitus type 2 -Accu check AC and bedtime -novolog sliding scale -levemir 5 units BID -Last HA1C in [place] was 6 -Follow up hemoglobin A1c Diet heart healthy diet, NPO at midnight for stress test DVT propholaxis Heparin drip Code FULL Problem List: 1. Unstable angina Pain Ratin Pain Location: n/a Pain Goal: Remain pain free Pain Plan: see medication Tomorrow's Labs & Rationales: CBC, CMP
--- NOTE | 2016-10-22 12:36 | PN- Cardiology ---
Subjective Subjective: No further chest discomfort. Also denies any palpitations or shortness of breath. Objective Vital Signs and I&Os Vital Signs Date Time Temp Pulse Resp B/P Pulse O2 O2 Flow FiO2 Ox Delivery Rate 10/22 09 75 116/60 10/22 09 75 116/60 10/22 09 75 116/60 10/22 0808 98.1 75 18 116/60 96 Room Air 10/22 0800 Room Air 10/21 2354 97.5 69 12 110/66 95 Room Air 10/21 2136 89 10/21 1600 97.9 63 18 112/80 93 Room Air Intake & Output 10/22 1600 10/22 0800 10/22 0000 10/21 1600 10/21 0800 10/21 0000 Intake Total 367.2 1419 1300 100 965 Output Total Balance 367.2 1419 1300 100 965 Intake, IV 127.2 354 320 45 Intake, Oral 240 1065 980 100 920 Patient 225 lb Weight Physical Exam: Well-developed, overweight -[place] female in no acute distress. Vital signs: See above. Lungs: Clear to auscultation. Heart: S1, S2 with no murmur, gallop, rub appreciated. PMI not well felt. Abdomen: Soft, nontender, positive bowel sounds. Extremities: No edema. Assessment/Plan Assessment/Plan Suspected unstable angina pectoris in this 66-year-old -Maced[place] female with a history of known coronary artery disease s/p anterior STEMI 10/09/2009 with PCI (DESx2 to LAD) with a risk equivalent/multiple risk factors for coronary artery disease. Fortunately, serial troponins negative for myocardial necrosis and her electrocardiograms have shown no acute ischemic changes. Recommendations: * Continue on telemetry. * Will plan for a nuclear exercise stress test. Rest images to be formed today and stress images tomorrow morning. * Will contact her assistant passenger locomotive engineer (Nathan Devlin M.D.) with the results of the stress test so that further evaluation and management can follow. * Continue on IV Heparin (or enoxaparin). * Continue on the rest of her cardiac regimen (statin, antiplatelet, MICHAEL inhibitor, and beta devaughn). * We will follow-up on echocardiogram to assess left ventricular systolic/ diastolic function, degree of left ventricular hypertrophy, wall motion abnormalities, etc. * Check glycosylated hemoglobin A1c. * Aim to maintain her potassium between 4.0-4.5 mEq per liter and magnesium at or above 2.0 mEq per liter. * Continue prophylaxis for deep vein thrombosis. Continue telemetry? Yes
[2016-10-22 15:48] VITALS: BP 122/60
[2016-10-22 19:48] LABS: PTT 49 SEC (25-37)
[2016-10-22 22:58] VITALS: BP 126/72
--- NOTE | 2016-10-23 01:59 | Event Note ---
Event Note Event Note: Situation: Chest Pain while at rest, left sided (not retrosternal) , radiating to the left arm and jaw. No diaphoresis, nausea or vomiting. Brief Assement * VS: BP 130/80, HR 72, 02:97% (RA), T 98.9, RR 20 * Physical Exam: AO3, NAD, CV: non rmerkable, Resp: CTA B/L * Resolution of pain after NTG administation * Non elevated trops and non acute new ischemic EKG changes Impression and Plan Chest pain in a patient with UA. Patient is already medically optimized with heparin infusion, beta devaughn, statin, and antiplatelet therapy. No medical intervention other than use of nitroglycerin is warranted at this time. Patient is scheduled for second phase of stress test.
[2016-10-23 02:33] LABS: ABSOLUTE BASOPHIL COUNT 0 /CUMM (0.0-0.2); ABSOLUTE EOSINOPHIL COUNT 0.2 /CUMM (0.0-0.7); ABSOLUTE GRANULOCYTE CT 2.7 /CUMM (1.4-6.5); ABSOLUTE LYMPH COUNT 1.8 /CUMM (1.2-3.4); ABSOLUTE MONOCYTE COUNT 0.4 /CUMM (0.10-0.60); BASOPHIL % 0.7 % (0.0-2.0); GRANULOCYTE % 51.7 % (42.2-75.2); HEMATOCRIT 35.5 % (37-47); MEAN CORPUSCULAR HGB 29.4 PG (27.0-31.0); MEAN CORPUSCULAR HGB CONC 33.6 G/DL (33.0-37.0); MEAN CORPUSCULAR VOLUME 87.4 FL (81.0-99.0); MEAN PLATELET VOLUME 8.6 FL (7.4-10.4); PLATELET COUNT 293 /CUMM (130-400); RBC DISTRIBUTION WIDTH 15.1 % (11.5-14.5); RED BLOOD CELL CT 4.07 /CUMM (4.20-5.40); WHITE BLOOD CELL COUNT 5.2 /CUMM (4.8-10.8)
--- NOTE | 2016-10-23 07:19 | PN- Housestaff ---
Subjective Follow-up For: Acute chest pain syndrome Unstable Angina Type 2 diabetes Tele-Events Since Last Visit: SR 68-84 first degree heart block SC 0.22 Subjective: patient was seen and examined thi kinga, she is sleeping comfortablly in bed with no acute distress. She denied any chest pain, palpitation, SOB, neusea, diaphoresis, dizziness or lightheadness. overnight the patient had an episode of cute chest pain that awake her up from sleep, she said the pain was 8/10 and lasted for 7 min, ledft side chest pain that radiate to left arm and jaw. The pain resolved with nitroglycerin, no elevated trops and no acute new ischemic EKG changes. Review of Systems Constitutional: Denies: see HPI. Objective Last 24 Hrs of Vital Signs/I&O Vital Signs Date Time Temp Pulse Resp B/P Pulse O2 O2 Flow FiO2 Ox Delivery Rate 10/23 1642 98.0 72 16 124/77 96 Room Air 10/23 1200 72 130/80 10/23 1200 72 130/80 10/23 1158 72 130/80 10/23 1158 72 130/80 10/23 0815 97.7 61 17 126/64 95 Room Air 10/23 0800 Room Air 10/22 2258 98.4 68 18 126/72 96 Room Air 10/22 2203 75 150/68 Intake & Output 10/23 1600 10/23 0800 10/23 0000 Intake Total 301 923.6 Output Total Balance 301 923.6 Intake, IV 61 63.6 Intake, Oral 240 860 Number 1 Bowel Movements Physical Exam General Appearance: Alert, Oriented X3, Cooperative, No Acute Distress Skin: No Rashes, No Breakdown, No Significant Lesion HEENT: Atraumatic, PERRLA, EOMI, Mucous Membr. moist/pink Neck: Supple Cardiovascular: Regular Rate, Normal S1, Normal S2, No Murmurs Lungs: Clear to Auscultation, Normal Air Movement Abdomen: Normal Bowel Sounds, Soft, No Tenderness Neurological: Normal Gait, Normal Speech, Strength at 5/5 X4 Ext, Normal Tone, Sensation Intact, Cranial Nerves 3-12 NL, Reflexes 2+ Extremities: No Clubbing, No Cyanosis, Normal Pulses, right LE trace edema, left LE +1 Assessment/Plan Assessment: Ms. Meier is a very pleasant lady with past medical history of hypertension, hyperlipidemia, diabetes mellitus type 2, previous OR status post stent 2009. She presented with chest pain and shortness of breath that started 2 weeks ago and increasing in frequency and severity. on admission EKG sinus rhythm 70 bpm Chest x-ray showed no cardiopulmonary abnormality Problem list #Unstable angina vs NSTEMI #Hypertension and hyperlipidemia #Diabetes mellitus 2 #Unstable angina vs NSTEMI -continue telemetry -Nuclear excercise stress test; the patient had the second prt today -A small region of reversible ischemia involving the mid and basal segments of the inferoseptal wall are noted. Decreased perfusion at the apexnis more pronounced than on the previous study suggesting additional fixedn perfusion abnormality is present at the apex. No other perfusion abnormalities are noted. Left ventricular wall motion and ejection fraction are normal. -Continue heparin drip -Continue carvedilol 25 mg twice a day by mouth -Continue Aspirin 81 mg daily -Continue clopidogril 75 mg daily -Continue nitroglycerin ointment 1 g every 6 when necessary for chest pain -Maintain potassium 4 to 4.5, Mg 2 or above -Follow cardiology recommendation #Hypertension and hyperlipidemia -continue Atrovostatin 20 mg daily -continue amlodipine 5 mg daily -Continue lisinopril 10 mg daily #Diabetes mellitus type 2 -Accu check AC and bedtime -novolog sliding scale -levemir 5 units BID -HA1C 7.7 -Follow up hemoglobin A1c Diet CHO2 DVT propholaxis Heparin drip Code FULL Problem List: 1. Unstable angina Pain Ratin Pain Location: n/a Pain Goal: Remain pain free Pain Plan: see medication Tomorrow's Labs & Rationales: CBC, CMP
[2016-10-23 08:15] VITALS: BP 126/64
--- NOTE | 2016-10-23 08:16 | NUR ---
0200 PT C/O CHEST PAIN.NO SHORTNESS OF BREATH NOTED.NOT IN DISTRESS.VSS.INSURANCE INVESTIGATOR RJ MADE AWARE.WITH ORDERS FOR LABS AND EKG.NITROPASTE PRN ORDER APPLIED WITH GOOD EFFECT.WILL CONTINUE TO MONITOR. PT REMAINS ON HEPARIN DRIP.
[2016-10-23 08:30] LABS: PTT > 120 SEC (25-37)
--- NOTE | 2016-10-23 10:07 | ECHOCARDIOGRAM REPORT ---
RAUL MARTINEZ Age: 66 : 1950 Gender: F Exam Date: 10/22/2016 17:11 Exam Location: [place] Ht (in): 63 Wt (lb): 230 BSA: 2.21 BP: 116 / 60 Ordering Physician: CARMEN TEJADA M Referring Physician: Temo Coppola MD Technologist: Marisela Barahona [facility] Room Number: 180-01 Indications: CHEST PAIN Rhythm: Sinus Technical Quality: Fair, Technically difficult study FINDINGS Left Ventricle Normal size left ventricle. Mild concentric left ventricular hypertrophy. No obvious regional wall motion abnormalities. Normal left ventricular ejection fraction visually estimated at greater than 65%. Abnormal relaxation filling pattern of the left ventricle for age (stage 1 diastolic dysfunction). Right Ventricle Normal right ventricular size and function. Right Atrium Normal right atrial size. Left Atrium Normal left atrial size. Mitral Valve Mild mitral annular calcification. Mitral valve mildly thickened. No mitral regurgitation. Aortic Valve Trileaflet aortic valve. Mild aortic sclerosis. No aortic valve stenosis or regurgitation. Tricuspid Valve Structurally normal tricuspid valve. Trace tricuspid regurgitation. No evidence of pulmonary hypertension. Right ventricular systolic pressure estimated to be within the normal range at 11 mmHg. Pulmonic Valve Pulmonic valve not well visualized. Trace pulmonic regurgitation. Pericardium No pericardial effusion. Great Vessels Normal size aortic root. CONCLUSIONS Normal size left ventricle. Mild concentric left ventricular hypertrophy. No obvious regional wall motion abnormalities. Normal left ventricular ejection fraction visually estimated at greater than 65%. Abnormal relaxation filling pattern of the left ventricle for age (stage 1 diastolic dysfunction). Normal right ventricular size and function. Normal atrial size. Trace tricuspid regurgitation. No evidence of pulmonary hypertension. Trace pulmonic regurgitation. Temo Coppola M.D. (Electronically Signed) Final Date: 23 October 2016 10:06 MEASUREMENTS (Male / Female) Normal Values 2D ECHO LV Diastolic Diameter PLAX 4.2 cm 4.2 - 5.9 / 3.9 - 5.3 cm LV Systolic Diameter PLAX 2.4 cm 2.1 - 4.0 cm LV Fractional Shortening PLAX 42.9 % 25 - 46 % LV Ejection Fraction 2D Teich 74.3 % IVS Diastolic Thickness 1.0 cm LVPW Diastolic Thickness 1.0 cm LV Relative Wall Thickness 0.5 RV Internal Dim ED PLAX 1.8 cm 1.9 - 3.8 cm LVOT Diameter 1.9 cm Aortic Root Diameter 3.0 cm LA Systolic Diameter LX 3.5 cm 3.0 - 4.0 / 2.7 - 3.8 cm LA Volume 32.0 cm 18 - 58 / 22 - 52 cm Ascending Aorta Diameter 2.8 cm DOPPLER AV Peak Velocity 143.0 cm/s AV Peak Gradient 8.2 mmHg AV Mean Velocity 107.0 cm/s AV Mean Gradient 5.0 mmHg AV Velocity Time Integral 32.6 cm LVOT Peak Velocity 130.0 cm/s LVOT Peak Gradient 6.8 mmHg LVOT Mean Velocity 92.6 cm/s LVOT Mean Gradient 4.0 mmHg LVOT Velocity Time Integral 28.9 cm LVOT Stroke Volume 81.9 cm AV Area Cont Eq vti 2.5 cm AV Area Cont Eq pk 2.6 cm MV Peak Velocity 89.5 cm/s MV Peak Gradient 3.2 mmHg MV Mean Velocity 53.1 cm/s MV Mean Gradient 1.0 mmHg Mitral E Point Velocity 57.8 cm/s Mitral A Point Velocity 80.5 cm/s Mitral E to A Ratio 0.7 MV PHT Velocity 93.9 cm/s MV Deceleration [place] 507.0 cm/s MV Pressure Half Time 55.6 ms MV Area PHT 4.0 cm MV Deceleration Time 288.0 ms TR Peak Velocity 123.0 cm/s TR Peak Gradient 6.1 mmHg Right Atrial Pressure 5.0 mmHg Pulmonary Artery Systolic Pressu 11.1 mmHg Right Ventricular Systolic Press 11.1 mmHg PV Peak Velocity 128.0 cm/s PV Peak Gradient 6.6 mmHg PV Mean Velocity 89.6 cm/s PV Mean Gradient 4.0 mmHg PV Velocity Time Integral 32.4 cm LV E' Lateral Velocity 6.9 cm/s Mitral E to LV E' Lateral Ratio 8.4 LV E' Septal Velocity 10.1 cm/s Mitral E to LV E' Septal Ratio 5.7
[2016-10-23 12:00] VITALS: BP 130/80
[2016-10-23 13:05] LABS: PTT 31 SEC (25-37)
--- NOTE | 2016-10-23 15:28 | NUCLEAR MEDICINE REPORT ---
PERSANTINE STRESS AND RESTING SPECT MYOCARDIAL PERFUSION IMAGING STUDY WITH GATED SPECT IMAGES: CLINICAL INDICATION: CAD PROCEDURE: Regional myocardial perfusion was assessed using a 2 day protocol. Stress images were obtained on 10/23/2016 following the intravenous administration of 33.4 mCi Tc 99m Myoview. Stress consisted of 60 mg Persantine given intravenously. Following the sestamibi injection, 125 mg aminophylline was given intravenously. Rest images were obtained 10/22/2016 following the intravenous administration of 37.4 mCi Technetium 99m Myoview. Single photon emission tomographic (SPECT) images were obtained. SPECT images were acquired in a 64 x 64 matrix of 64 projections over 180 degrees. These were reconstructed into standard short axis, horizontal and vertical long axis cardiac projections. FINDINGS: The post stress images show the left ventricular chamber to be normal in size. There is prominent thinning at the apex, but this is probably not outside the limits of normal. There is markedly decreased activity in a small region involving the mid and basal segments of the inferoseptal wall. Activity in the other cote appears normal. The rest images show improvement with no definite residual abnormality in the mid and basal inferoseptal wall abnormality described above on the stress images. The prominent thinning at the apex is similar on the rest and stress images. The other cote are also unchanged on the post stress images and appear normal. The images were obtained using a gated SPECT technique, which permits visualization of wall motion and calculation of the left ventricular ejection fraction. The left ventricular chamber is normal in size. No left ventricular wall motion abnormalities are present. The calculated left ventricular ejection fraction is 69% on the stress study. Compared to the previous study dated 09/26/2009, the abnormality in the inferoseptal wall is new. Also, the decreased activity at the apex is more pronounced on the current study than previously. The gated images from the previous study are not available for review and the wall motion cannot be compared. IMPRESSION: A small region of reversible ischemia involving the mid and basal segments of the inferoseptal wall are noted. Decreased perfusion at the apex is more pronounced than on the previous study suggesting additional fixed perfusion abnormality is present at the apex. No other perfusion abnormalities are noted. Left ventricular wall motion and ejection fraction are normal.
[2016-10-23 16:42] VITALS: BP 124/77
--- NOTE | 2016-10-23 18:57 | PN- Cardiology ---
Subjective Subjective: Mrs. Truong had an episode of chest discomfort early this morning that lasted approximately one half hour before spontaneously subsiding. She denies having had any exertional chest discomfort. Objective Vital Signs and I&Os Vital Signs Date Time Temp Pulse Resp B/P Pulse O2 O2 Flow FiO2 Ox Delivery Rate 10/23 1642 98.0 72 16 124/77 96 Room Air 10/23 1200 72 130/80 10/23 1200 72 130/80 10/23 1158 72 130/80 10/23 1158 72 130/80 10/23 0815 97.7 61 17 126/64 95 Room Air 10/23 0800 Room Air 10/22 2258 98.4 68 18 126/72 96 Room Air 10/22 2203 75 150/68 Intake & Output 10/23 1600 10/23 0800 10/23 0000 10/22 1600 10/22 0800 10/22 0000 Intake Total 301 923.6 487.2 367.2 1419 Output Total Balance 301 923.6 487.2 367.2 1419 Intake, IV 61 63.6 127.2 127.2 354 Intake, Oral 240 860 874 301 9553 Number 1 Bowel Movements Physical Exam: Well-developed, overweight -Burmese female in no acute distress. Vital signs: See above. Lungs: Clear to auscultation. Heart: S1, S2 with no murmur, gallop, rub appreciated. PMI not well felt. Abdomen: Soft, nontender, positive bowel sounds. Extremities: No edema. Current Medications: Current Medications Sig/Isabelle Start time Last Medication Dose Route Stop Time Status Admin Acetaminophen 650 MG Q6P PRN 10/19 1530 AC PO Amlodipine Besylate 5 MG DAILY 10/20 1000 AC 10/23 PO 1158 Aspirin 81 MG DAILY 10/20 1000 AC 10/23 PO 1157 Atorvastatin Calcium 20 MG DAILY 10/20 1000 AC 10/23 PO 1157 Carvedilol 25 MG BID 10/19 2200 AC 10/23 PO 1200 Clopidogrel Bisulfate 75 MG DAILY 10/20 1000 AC 10/23 PO 1200 Diphenhydramine HCl 25 MG Q6P PRN 10/19 1530 AC PO Dipyridamole 60 MG 0910/23 0900 DC Dextrose/Water 28 ML IV 10/23 0903 Docusate Sodium 100 MG BID 10/19 2200 AC 10/23 PO 1201 Heparin Sodium 5,000 UNIT ONCE ONE 10/23 1200 DC 10/23 (Porcine) IV 10/23 1201 1321 Heparin Sodium 25,000 UNIT Q24H 10/23 1200 AC 10/23 (Porcine) IV 1324 Sodium Chloride 500 ML Heparin Sodium 25,000 UNIT Q24H 10/20 1630 DC 10/21 (Porcine) IV 1553 Sodium Chloride 500 ML Insulin Aspart 0 TIDAC 10/19 1700 AC 10/23 SC 1752 Insulin Detemir 5 UNITS BID 10/19 2200 AC 10/23 SC 1158 Ketorolac 15 MG Q6P PRN 10/19 1530 AC Tromethamine IV Lisinopril 10 MG DAILY 10/20 1000 AC 10/23 PO 1158 Magnesium Chloride 64 MG BID 10/23 2200 AC PO Morphine Sulfate 4 MG Q4P PRN 10/19 1530 AC IV Nitroglycerin 1 GM Q6 PRN 10/19 1600 AC 10/23 TOP 0202 Patient Medication 1 UNIT ONE NR 10/23 1215 DC Teaching ED 10/23 1815 Polyethylene Glycol 17 GM AT BEDTIME 10/19 2200 AC 10/22 PO 2204 Prochlorperazine 10 MG Q6P PRN 10/19 1530 AC IV Senna/Docusate Sodium 1 TAB AT BEDTIME 10/19 2200 AC 10/22 PO 2205 Results Last 48 Hrs of Labs/Mics: Laboratory Tests 10/23/16 1240: APTT 31 10/23/16 0650: APTT > 120 *H 10/23/16 0600: Sodium Cancelled, Potassium Cancelled, Chloride Cancelled, Carbon Dioxide Cancelled, Anion Gap Cancelled, BUN Cancelled, Creatinine Cancelled, BUN/ Creatinine Ratio Cancelled 10/23/16 0210: Anion Gap 7, Estimated GFR > 60, BUN/Creatinine Ratio 20.0, Phosphorus 4.2, Magnesium 1.6, Troponin I < 0.01, CBC w Diff NO MAN DIFF REQ, RBC 4.07 L, MCV 87.4, MCH 29.4, RDW 15.1 H, MPV 8.6, Gran % 51.7, Lymphocytes % 35.2, Monocytes % 8.4, Eosinophils % 4.0, Basophils % 0.7, Absolute Granulocytes 2.7, Absolute Lymphocytes 1.8, Absolute Monocytes 0.4, Absolute Eosinophils 0.2, Absolute Basophils 0, PUBS MCHC 33.6 10/22/16 1840: APTT 49 H 10/22/16 0530: Anion Gap 6, Estimated GFR > 60, BUN/Creatinine Ratio 20.0, Magnesium 1.8, APTT 63 H 10/21/16 2251: APTT 93 H Recent Imaging Studies: Pharmacologic stress test (10/23/2016) A small region of reversible ischemia involving the mid and basal segments of the inferoseptal wall are noted. Decreased perfusion at the apex is more pronounced than on the previous study suggesting additional fixed perfusion abnormality is present at the apex. No other perfusion abnormalities are noted. Left ventricular wall motion and ejection fraction are normal. Echocardiogram (10/22/2016) Normal size left ventricle with mild concentric left ventricular hypertrophy, no obvious regional wall motion abnormalities, and normal systolic function with an estimated ejection fraction of greater than 65% , normal right ventricular size and function, normal atrial size, some age- related valvular changes, no pericardial effusion, and a normal size aortic root. The Doppler portion of the study revealed evidence of physiologic tricuspid and pulmonic regurgitation, no evidence of pulmonary hypertension, and a delayed relaxation left ventricular inflow pattern consistent with stage I diastolic dysfunction. Assessment/Plan Assessment/Plan Recurrent episodes of chest discomfort in this 66-year-old -[place] female with a history of known coronary artery disease s/p anterior STEMI 2009 with PCI (DESx2 to LAD) with a risk equivalent/multiple risk factors for coronary artery disease without evidence of myocardial necrosis by serial cardiac enzymes, but now with a mildly positive pharmacologic stress test. The plan will be to contact her attending bonding supervisor with the stress test results so further evaluation and management can follow. For now, we will maintain her on her present cardiac regimen. Recommendations: * Continue on telemetry. * Will contact her bonding supervisor (Nathan Devlin M.D.) with the results of the stress test so that further evaluation and management can follow. * Continue on IV Heparin. * Continue on the rest of her cardiac regimen (statin, antiplatelet, MICHAEL inhibitor, and beta devaughn). * Continue prophylaxis for deep vein thrombosis. Continue telemetry? Yes
[2016-10-23 21:22] LABS: PTT 98 SEC (25-37)
[2016-10-23 22:40] VITALS: BP 126/80
--- NOTE | 2016-10-24 01:12 | NUR ---
PT CALLED C/O 04/15 CP RADIATING TO L ARM. BP 152/82 HR 81. NITROBID PASTE APPLIED TO MD RITA AT BEDSIDE TO EVALUATE. PT STATED SHE WALKED TO THE BATHROOM WHICH IS WHEN THE PAIN BEGAN. WILL CONTINUE TO MONITOR.
[2016-10-24 05:30] LABS: ABSOLUTE BASOPHIL COUNT 0.1 /CUMM (0.0-0.2); ABSOLUTE EOSINOPHIL COUNT 0.2 /CUMM (0.0-0.7); ABSOLUTE GRANULOCYTE CT 3.5 /CUMM (1.4-6.5); ABSOLUTE LYMPH COUNT 1.9 /CUMM (1.2-3.4); ABSOLUTE MONOCYTE COUNT 0.5 /CUMM (0.10-0.60); EOSINOPHIL % 2.9 % (0-5); GRANULOCYTE % 57.2 % (42.2-75.2); HEMATOCRIT 35.8 % (37-47); MEAN CORPUSCULAR HGB 29.2 PG (27.0-31.0); MEAN CORPUSCULAR HGB CONC 32.9 G/DL (33.0-37.0); MEAN CORPUSCULAR VOLUME 88.7 FL (81.0-99.0); MEAN PLATELET VOLUME 8.5 FL (7.4-10.4); PLATELET COUNT 283 /CUMM (130-400); RBC DISTRIBUTION WIDTH 15.4 % (11.5-14.5); RED BLOOD CELL CT 4.04 /CUMM (4.20-5.40); WHITE BLOOD CELL COUNT 6.1 /CUMM (4.8-10.8)
[2016-10-24 05:37] LABS: PTT 58 SEC (25-37)
--- NOTE | 2016-10-24 06:37 | Event Note ---
Event Note Event Note: Around 1 AM, patient complained of 7 out of 10 chest pain. Patient was seen and examined at bedside. She stated that pain was stabbing and located on the left side of her chest with radiation to her jaw and down left arm. Per patient, pain had started after ambulating to the bathroom. She reported that she had similar pain last night as well as another episode at home prior to admission. Heart exam was normal. BP was 152/82 and HR was 81. Nitroglycerin paste was applied to left chest wall with subsequent resolution of pain.
--- NOTE | 2016-10-24 07:17 | PN- Housestaff ---
Subjective Follow-up For: Unstable angina Subjective: Patient was seen and examined this morning. Overnight, she had an incident of chest pain that began soon after she ambulated to the bathroom. The pain was over the left half of her chest, radiated to the left arm and neck and subsided over 7-8 mins with rest. She did not have nausea, diaphoresis associated with the pain. This morning, she is comfortably lying down with no chest pain. She endorses having a dry cough that is not new. She recalls having a cough that was productive sometime in june which was managed with 3 courses of antibiotics, last one being Levofloxacin and her cough subsided but never went away completely. She is on an MICHAEL inhibitor, which should be considered as attributing to this persistant dry cough. Tele reported Sinus rhythm with 1st degree heart block and rates 68-88beats/min, No events. Review of Systems Constitutional: Denies: see HPI. Objective Last 24 Hrs of Vital Signs/I&O Vital Signs Date Time Temp Pulse Resp B/P Pulse O2 O2 Flow FiO2 Ox Delivery Rate 10/24 1033 63 110/70 10/24 1032 63 110/70 10/24 1032 63 110/70 10/24 0837 97.8 63 18 110/70 96 Room Air 10/23 2240 98.1 70 18 126/80 98 Room Air 10/23 2113 68 150/76 Intake & Output 10/24 1600 10/24 0800 10/24 0000 Intake Total 360 110 880 Output Total Balance 360 110 880 Intake, IV 110 160 Intake, Oral 360 720 Patient 102.228 kg Weight Physical Exam General Appearance: Alert, Oriented X3, Cooperative, No Acute Distress Skin: No Rashes, No Breakdown, No Significant Lesion Cardiovascular: Regular Rate, Normal S1, Normal S2 Lungs: Clear to Auscultation, Normal Air Movement Abdomen: Normal Bowel Sounds, Soft, No Tenderness, No Hepatospenomegaly Neurological: Normal Gait, Normal Speech, Strength at 5/5 X4 Ext, Normal Tone, Sensation Intact, Cranial Nerves 3-12 NL, Reflexes 2+ Extremities: No Clubbing, No Cyanosis, Left LE +1 edema Right LE trace edema Vascular: Normal Pulses, Pulses Symmetrical Assessment/Plan Assessment: Ms. Meier is a very pleasant lady with past medical history of hypertension, hyperlipidemia, diabetes mellitus type 2, previous MN status post stent 2009. She presented with chest pain and shortness of breath that started 2 weeks ago and increasing in frequency and severity. on admission EKG sinus rhythm 70 bpm Chest x-ray showed no cardiopulmonary abnormality Problem list #Unstable angina vs NSTEMI #Hypertension and hyperlipidemia #Diabetes mellitus 2 #Unstable angina vs NSTEMI -continue telemetry -Nuclear excercise stress test; the patient had the second prt today -A small region of reversible ischemia involving the mid and basal segments of the inferoseptal wall are noted. Decreased perfusion at the apexnis more pronounced than on the previous study suggesting additional fixedn perfusion abnormality is present at the apex. No other perfusion abnormalities are noted. Left ventricular wall motion and ejection fraction are normal. -Continue heparin drip -Continue carvedilol 25 mg twice a day by mouth -Continue Aspirin 81 mg daily -Continue clopidogril 75 mg daily -Continue nitroglycerin ointment 1 g every 6 when necessary for chest pain -Maintain potassium 4 to 4.5, Mg 2 or above -Follow cardiology recommendation -Patient will be transferred today to [facility] for possible cardiac cath #Hypertension and hyperlipidemia -continue Atrovostatin 20 mg daily -continue amlodipine 5 mg daily -Continue lisinopril 10 mg daily #Diabetes mellitus type 2 -Accu check AC and bedtime -novolog sliding scale -levemir 5 units BID -HA1C 7.7 -Follow up hemoglobin A1c Diet CHO2 DVT propholaxis Heparin drip Code FULL Problem List: 1. Unstable angina Pain Ratin Pain Location: n/a Pain Goal: Remain pain free Pain Plan: see mediaction Tomorrow's Labs & Rationales: none
--- NOTE | 2016-10-24 07:34 | NUR ---
PTT WAS 58, CURRENT HEPARIN GTT AT 15.9ML/HR. PER PROTOCOL BOLUS 30UNITS/KG AND INCREASE GTT 2UNITS/KG/HR. CURRENT WEIGHT 102.2KG BOLUS 3066, NEW RATE 20ML/HR. FAX SENT TO PHARMACY FOR BOLUS ORDER AT APPROXIMATELY 0630 WITH NO REPLY. BOLUS ORDER CONFIRMED BY ANOTHER RN AND BOLUS GIVEN BY THIS RN.
[2016-10-24 08:37] VITALS: BP 110/70
--- NOTE | 2016-10-24 09:09 | NUR ---
PATIENT CALLED FOR HELP @ 0815 AND STATED SHE WAS HAVING ACHING CHEST PAIN THAT WAS RAADIATING TO HER BACK. THIS RN PLACED HER ON 2LO2NC AND GOT HER BACK TO BED. HER BP WAS 130/62, HR 82, AND O2 SAT 100% ON 2LNCO2. 1 SUBLINGUAL NITRO, 1MG MORPHINE IV, AND 325MG ASA WAS ORDERED AND GIVEN. EKG WAS DONE. TROPONIN ORDERED. PT C/O OF SLIGHT SOB, BUT PAIN LEVEL DCREASED FORM A 6 TO A 4 ON A PAIN SCALE OF 1-10.
--- NOTE | 2016-10-24 09:21 | IV DIPYRIDAMOLE NUCLEAR STRESS ---
Clinical Diagnosis: Recurrent exertional chest pain Tool Machine Shop Supervisor: Rubens Ivy IV DIPYRIDAMOLE INFUSED: 60 mg IV AMINOPHYLLINE INFUSED: 125 mg PATIENT WEIGHT: 225 lbs INTERPRETATION: The patient's baseline EKG revealed sinus rhythm, borderline first degree atrioventricular block and abnormal precordial R wave progression V1-V3 at 63 BPM. Baseline B/P 116/70 mm Hg. The patient received 60 mg of dipyridamole infused intravenously over a 4 minute period. TC-99M or Myoview was injected after dipyridamole infusion. The patient complained of transient headache and chest discomfort that improved following the administration of IV aminophylline 125 mg x 1. There were no EKG changes seen following pharmacologic infusion. Arrhythmias: None IMPRESSION: The test was supervised by the interpreting Form Grader, who was in attendance during the entire test. No EKG evidence of stress induced myocardial ischemia. See separately dictated Nuclear Report.
[2016-10-24 10:33] VITALS: BP 110/70
--- NOTE | 2016-10-24 11:07 | PN- Cardiology ---
Subjective Subjective: Mrs. Truong had an episode of left precordial chest heaviness after returning to bed from the bathroom last night that was described as a "heaviness" with some radiation to her left arm and left side of her neck that subsided within 10 minutes. She has had no further symptoms since that time. Objective Vital Signs and I&Os Vital Signs Date Time Temp Pulse Resp B/P Pulse O2 O2 Flow FiO2 Ox Delivery Rate 10/24 1033 63 110/70 10/24 1032 63 110/70 10/24 1032 63 110/70 10/24 0837 97.8 63 18 110/70 96 Room Air 10/23 2240 98.1 70 18 126/80 98 Room Air 10/23 2113 68 150/76 10/23 1642 98.0 72 16 124/77 96 Room Air 10/23 1200 72 130/80 10/23 1200 72 130/80 10/23 1158 72 130/80 10/23 1158 72 130/80 Intake & Output 10/24 1600 10/24 0800 10/24 0000 10/23 1600 10/23 0800 10/23 0000 Intake Total 110 880 301 923.6 Output Total Balance 110 880 301 923.6 Intake, IV 110 160 61 63.6 Intake, Oral 720 240 860 Number 1 Bowel Movements Physical Exam: Well-developed, obese elderly -Citizen Of [place] female in no acute distress. Vital signs: See above. Neck: No JVD, no bruits. Lungs: Clear to auscultation bilaterally. Heart: S1, S2 with no murmur, gallop, or rub appreciated. Abdomen: Soft, nontender, positive bowel sounds. Extremities:Trace edema. Current Medications: Current Medications Sig/Isabelle Start time Last Medication Dose Route Stop Time Status Admin Acetaminophen 650 MG Q6P PRN 10/19 1530 AC PO Amlodipine Besylate 5 MG DAILY 10/20 1000 AC 10/24 PO 1032 Aspirin 81 MG DAILY 10/20 1000 AC 10/24 PO 1032 Atorvastatin Calcium 20 MG DAILY 10/20 1000 AC 10/24 PO 1033 Carvedilol 25 MG BID 10/19 2200 AC 10/24 PO 1032 Clopidogrel Bisulfate 75 MG DAILY 10/20 1000 AC 10/24 PO 1032 Diphenhydramine HCl 25 MG Q6P PRN 10/19 1530 AC PO Docusate Sodium 100 MG BID 10/19 2200 AC 10/24 PO 1033 Heparin Sodium 5,000 UNIT ONCE ONE 10/23 1200 DC 10/23 (Porcine) IV 10/23 1201 1321 Heparin Sodium 25,000 UNIT Q24H 10/23 1200 AC 10/23 (Porcine) IV 1324 Sodium Chloride 500 ML Insulin Aspart 0 TIDAC 10/19 1700 AC 10/24 SC 0815 Insulin Detemir 5 UNITS BID 10/19 2200 AC 10/24 SC 1033 Ketorolac 15 MG Q6P PRN 10/19 1530 AC Tromethamine IV Lisinopril 10 MG DAILY 10/20 1000 AC 10/24 PO 1033 Magnesium Chloride 64 MG BID 10/23 2200 AC 10/24 PO 1033 Morphine Sulfate 4 MG Q4P PRN 10/19 1530 AC IV Nitroglycerin 1 GM Q6 PRN 10/19 1600 AC 10/24 TOP 0108 Patient Medication 1 UNIT ONE NR 10/23 1215 DC Teaching ED 10/23 1815 Polyethylene Glycol 17 GM AT BEDTIME 10/19 2200 AC 10/22 PO 2204 Prochlorperazine 10 MG Q6P PRN 10/19 1530 AC IV Senna/Docusate Sodium 1 TAB AT BEDTIME 10/19 2200 AC 10/23 PO 2113 Results Last 48 Hrs of Labs/Mics: Laboratory Tests 10/24/16 0420: Anion Gap 7, Estimated GFR > 60, BUN/Creatinine Ratio 18.9, Magnesium 1.6, APTT 58 H, CBC w Diff NO MAN DIFF REQ, RBC 4.04 L, MCV 88.7, MCH 29.2, RDW 15.4 H, MPV 8.5, Gran % 57.2, Lymphocytes % 31.0, Monocytes % 7.9, Eosinophils % 2.9, Basophils % 1.0, Absolute Granulocytes 3.5, Absolute Lymphocytes 1.9, Absolute Monocytes 0.5, Absolute Eosinophils 0.2, Absolute Basophils 0.1, PUBS MCHC 32.9 L 10/23/16 1857: APTT 98 H 10/23/16 1240: APTT 31 10/23/16 0650: APTT > 120 *H 10/23/16 0600: Sodium Cancelled, Potassium Cancelled, Chloride Cancelled, Carbon Dioxide Cancelled, Anion Gap Cancelled, BUN Cancelled, Creatinine Cancelled, BUN/ Creatinine Ratio Cancelled 10/23/16 0210: Anion Gap 7, Estimated GFR > 60, BUN/Creatinine Ratio 20.0, Phosphorus 4.2, Magnesium 1.6, Troponin I < 0.01, CBC w Diff NO MAN DIFF REQ, RBC 4.07 L, MCV 87.4, MCH 29.4, RDW 15.1 H, MPV 8.6, Gran % 51.7, Lymphocytes % 35.2, Monocytes % 8.4, Eosinophils % 4.0, Basophils % 0.7, Absolute Granulocytes 2.7, Absolute Lymphocytes 1.8, Absolute Monocytes 0.4, Absolute Eosinophils 0.2, Absolute Basophils 0, PUBS MCHC 33.6 10/22/16 1840: APTT 49 H Assessment/Plan Assessment/Plan Recurrent episodes of chest discomfort in this 66-year-old -Citizen Of [place] female with a history of known coronary artery disease s/p anterior STEMI 2009 with PCI (DESx2 to LAD) with a risk equivalent/multiple risk factors for coronary artery disease without evidence of myocardial necrosis by serial cardiac enzymes, but now with a mildly positive pharmacologic stress test. Discussed 's hospital course with her attending front desk specialist (Nathan Devlin M.D.) and the stress test results and the plan will be to transfer her to [facility] with Dr. Devlin as the accepting physician for cardiac catheterization with an eye towards revascularization. For now, we will continue her nothing by mouth status and maintain her on her present cardiac regimen. Continue telemetry? Yes
--- NOTE | 2016-10-24 11:13 | Discharge Summary ---
See Addendum Visit Information Visit Dates Admission Date: 10/19/16 Discharge Date: 10/24/16 Hospital Course Course Attending Physician: JODIE MANZANO,SHAMAR Maki Primary Care Physician: SONNY LAINEZ MD Consulting Request: Consulting Specialty: Cardiology Consulting Physician: [facility] Course: is a 66 yo -[place] women with PMHx significant for obesity , hypertension, dyslipidemia, diabetes mellitus, and coronary artery disease . Emergency department at 10/19/2016 with a chief complaint of chest pain. She states that she had been in her usual state of health until approximately 2 weeks ago when she began having recurrent episodes of exertional chest discomfort that would typically resolve within a few minutes of her discontinuing the activity responsible for symptom onset. On a few occasions she also recalls being awakened from sleep with a "heartburn- like" sensation in her chest that would improve after she sat up. This she thinks was different than what she has been experiencing with exertion. On at least one occasion she also had radiation of the discomfort to her neck and to her jaw. She also states that on a few occasions she has awakened with "tingling" in her hands. Mrs. Armijo was admitted to [facility] (09/25-09/26/2009) for recurrent chest discomfort and at that time had no acute electrocardiographic changes, no evidence of myocardial necrosis by serial cardiac enzymes, and a predischarge negative imaging stress test. She again presented to the ED on 10/09/2009 with an acute anterior wall myocardial infarction and was transferred emergently to [facility] where she underwent a percutaneous coronary intervention with drug- eluting stents placed presumably to her left anterior descending artery. Further details of this admission are not presently available. She is routinely followed-up for her cardiac issues by her [place] database marketing manager (Nathan Devlin M.D.). She states that prior to undergoing uneventful total left knee replacement in March 2016 she had surgical clearance following a negative imaging stress test. She presented to at 10/19/2016 with chest pain: At ED patient was hemodynamically stable, ACS was ruled out by negative troponin, EKG at presentation shows sinus rhythm, probable old anteroseptal wall myocardial infarction. Improved since previous tracing (10/09/2009). Dr. Coppola saw the patient while she hospitalized at [facility], patient started on IV heparin, with continued statin, antiplatelet, MICHAEL inhibitor, and beta devaughn, echocardiogram was obtained which shows: Normal size left ventricle. Mild concentric left ventricular hypertrophy. No obvious regional wall motion abnormalities. Normal left ventricular ejection fraction visually estimated at greater than 65%. Nuclear exercise test was obtained which shows: A small region of reversible ischemia involving the mid and basal segments of the inferoseptal wall are noted. Decreased perfusion at the apex is more pronounced than on the previous study suggesting additional fixed perfusion abnormality is present at the apex. No other perfusion abnormalities are noted. Left ventricular wall motion and ejection fraction are normal. Dr. Coppola will contacted her database marketing manager (Nathan Devlin M.D.) and the stress test result and the plan will be to transfer her to [facility] with Dr. Devlin as the accepting physician for cardiac catheterization with an eye towards revascularization. For now, we will continue her nothing by mouth status and maintain her on her present cardiac regimen. Complications: -Non Allergies: Coded Allergies: No Known Allergies (10/19/16) Disposition Summary Disposition Principal Diagnosis: -Positive pharmacologic stress test for fixed ischemia on the anterior septal wall with decreased perfusion to the -History of known coronary artery disease s/p anterior STEMI 10/09/2009 with PCI (DESx2 to LAD) with a risk equivalent/multiple risk factors for coronary artery disease without evidence of myocardial necrosis by serial cardiac enzymes Additional Diagnosis: -Obesity, hypertension, dyslipidemia, diabetes, coronary artery disease Discharge Disposition: other general hospital Discharge Instructions General Discharge Information Code Status: Full Code Patient's Diet: -Heart healthy/diabetic diet Patient's Activity: -As tolerated Follow-Up Instructions/Appts: -Follow-up with your database marketing manager after discharge -Acute medication as prescribed -Follow-up with your primary care physician after discharge Medications at Discharge Discharge Medications: Stop taking the following medications: Metformin HCl (Glucophage) 1,000 MG TABLET ORAL TWICE DAILY Qty = 180 Copies To: JODIE MANZANO,SHAMAR Maki
[2016-10-24] MEDS ORDERED: HEPARIN-1/25000 UNI1 IV (11:34)
[2016-10-24] MEDS ORDERED: NITROGLYCERIN0.4 M1 SL (11:34)
[2016-10-24] MEDS ORDERED: GLUCOPHAGE1000 M1 PO (11:37)
--- NOTE | 2016-10-24 12:28 | ULTRASOUND REPORT ---
EXAMINATION: LEFT LOWER EXTREMITY VENOUS ULTRASOUND CLINICAL INFORMATION: Left lower extremity edema status post left knee surgery COMPARISON: None. TECHNIQUE: Doppler spectral analysis and color flow Doppler imaging was performed of the left lower extremity. Compression and augmentation maneuvers were performed. FINDINGS: The left common femoral, femoral, popliteal and calf veins were well-identified and normal. They demonstrate normal compressibility and color fill-in. IMPRESSION: No evidence for left lower extremity deep vein thrombosis.
== END 2016-10-24 13:00 | disposition short-term general hospital (02) | DRG 303 ==
LOC: ENRESERVTM → ENRESERVDT → ERH 12:25 → 1NO 14:43 → ERHI 14:43 → ENPENDDIS 14:43 → 1NO 18:14
PROVIDERS: Physician Assistant; Student in an Organized Health Care Education/Training Program; ADMIT Internal Medicine Interventional Cardiology
DX: I25.110 Atherosclerotic heart disease of native coronary artery with unstable angina pectoris (principal); Z68.41 Body mass index [BMI] 40.0-44.9, adult; I10 Essential (primary) hypertension; E66.9 Obesity, unspecified
CPT/HCPCS: 1NSP; 36415; 78452; 82436; 93005; 93010; 93016; 93017; 93306; A9502; J0780; J1245; J1644; J1650; J3490

== ENCOUNTER 2018-01-08 12:54 | Emergency (ER) | payer OTHER ==
[~2018-01-08] VITALS: Ht 160 cm; Wt 103.4 kg
[~2018-01-08 12:54] MED LIST: AMLODIPINE-BEN1 EAC2 PO; ASPIRIN81 M4 PO; ATORVASTATIN CA20 M1 PO; CARVEDILOL25 M1 PO; CLOPIDOGREL75 M1 PO; GLUCOPHAGE1000 M1 PO; HEPARIN-1/25000 UNI1 IV; NITROGLYCERIN0.4 M1 SL
[2018-01-08 13:18] VITALS: BP 143/87
--- NOTE | 2018-01-08 13:56 | ED HAND/WRIST INJURY COMPLAINT ---
History of Present Illness General Chief Complaint: Hand or Wrist Injury Stated Complaint: LEFT HAND SWELLING Source: patient Exam Limitations: no limitations Vital Signs & Intake/Output Vital Signs & Intake/Output Vital Signs Date Time Temp Pulse Resp B/P B/P Pulse O2 O2 Flow FiO2 Mean Ox Delivery Rate 01/08 1318 97.4 70 20 143/87 99 Room Air Allergies Coded Allergies: No Known Allergies (10/19/16) Reconcile Medications Amlodipine Besylate/Benazepril (Amlodipine-Benazepril 5-20 MG) 5 MG-20 MG CAPSULE 1 CAP PO QPM HEART (Reported) Aspirin (Aspirin*) 81 MG TAB.CHEW 1 TAB PO DAILY HEART HEALTH (Reported) Atorvastatin Calcium 20 MG TABLET 1 TAB PO DAILY CHOLESTEROL (Reported) Carvedilol 25 MG TABLET 1 TAB PO BID HEART (Reported) Cephalexin (Keflex) 500 MG CAPSULE 1 CAP PO TID cellulitis Clopidogrel Bisulfate (Clopidogrel) 75 MG TABLET 1 TAB PO DAILY BLOOD THINNER (Reported) Heparin (Heparin-1/2NS 25,000 Units/500) 25,000 UNIT/500 ML (50 UNIT/ML) IV.SOLN 0 IV Q24 anticoagulation Metformin HCl (Glucophage) 1,000 MG TABLET 1 TAB PO BID DIABETES Nitroglycerin 0.4 MG TAB.SUBL 1 MG SL Q8 CHEST PAIN Triage Note: C/O PAIN AND SWELLING TO TOP OF LEFT HAND X 2 DAYS, DENIES FALL OR INJURY. Triage Nurses Notes Reviewed? yes Duration: day(s): Timing: recent history Injury Environment: home Pain/Injury Location: Left: Hand. Method of Injury: unknown HPI: Pt is a 67yo AA F with a PMH significant for DMT2, five stent placements (on ASA81 and plavix) who presents to the ED with a CC of left hand swelling and discoloration. Pt states she noticed the changes in the dorsal aspect of her left hand yesterday afternoon. She denies any significant pain. She denies any recent trauma, any known bug bites, and any previous hx of swelling in the hands. She denies fevers/chills. Pt does state she was in the basement two days ago but cannot recall being bit by anything. (Fletcher PARKS,Ashok) Past History Travel History Traveled to [place] past 21 day No Medical History Any Pertinent Medical History? see below for history Cardiovascular: CAD, hypertension, hyperlipidemia, myocardial infarction, 2 STENTS Respiratory: SLEEP APNEA Endocrine: diabetes History of MRSA: No History of VRE: No History of CDIFF: No Influenza Vaccine: 08/07/08 Surgical History Surgical History: hernia repair-inguinal, knee replacement, cardiac stent x 2 Psychosocial History Who do you live with Spouse Services at Home None What is your primary language Nigerien Tobacco Use: Never used ETOH Use: denies use Family History Hx Contributory? No (Ashok Crawford) Review of Systems Review of Systems Constitutional: Denies: see HPI. EENTM: Denies: no symptoms. Respiratory: Denies: no symptoms. Cardiovascular: Denies: no symptoms. GI: Denies: no symptoms. Genitourinary: Denies: no symptoms. Musculoskeletal: Reports: see HPI. Skin: Reports: see HPI. Neurological/Psychological: Denies: no symptoms. Hematologic/Endocrine: Denies: no symptoms. Immunologic/Allergic: Denies: no symptoms. All Other Systems: Reviewed and Negative (Ashok Crawford) Physical Exam Physical Exam General Appearance: well developed/nourished, no apparent distress, alert, awake , comfortable Head: atraumatic, normal appearance Eyes: Bilateral: normal appearance, EOMI. Ears, Nose, Throat: normal ENT inspection Neck: normal inspection Cardiovascular/Respiratory: normal breath sounds Shoulder Left: normal range of motion Shoulder Right: normal range of motion Elbow Left: normal range of motion Elbow Right: normal range of motion Forearm Left: normal range of motion Forearm Right: normal range of motion Wrist Left: normal range of motion, normal inspection Wrist Right: normal range of motion, normal inspection Hand Left: swelling, The dorsal aspect of the left hand is edematous, slightly erythematous around the knuckles, slightly tender to deep palpation, ROM WNLs, pain slighty exacerbated when making a fist, no obvious puncture or bite escobedo, equally as warm as right hand., cap refill intatc, radial pulse 2+ . Capillary refill intact. Hand Right: normal inspection, normal range of motion Neurologic/Tendon: normal sensation, normal motor functions Skin: intact, normal color, warm/dry (Ashok Crawford) Progress Differential Diagnosis: abscess, cellulitis, contusion, fracture, gout, sprain Plan of Care: Orders Procedure Date/time Status XRY-HAND, 3 View LEFT 04/04 1402 Active Diagnostic Imaging: Viewed by Me: Radiology Read. Discussed w/RAD: Radiology Read. Radiology Impression: PATIENT: RAUL MARTINEZ PRESENT AGE: 67 PATIENT ACCOUNT NO: [id number] : 51 LOCATION: [facility] ORDERING PHYSICIAN: Ashok PARKS SERVICE DATE: 01/08/18 EXAM TYPE : RAD - XRY-HAND, LEFT EXAMINATION: XR HAND, LEFT CLINICAL INFORMATION: Left hand swelling and mild pain COMPARISON: None TECHNIQUE: PA, lateral, and oblique views of the left hand. FINDINGS: Osseous alignment is anatomic. No acute fracture is seen. 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 Soft tissue swelling is noted adjacent to the metacarpals. IMPRESSION: Soft tissue swelling. No fracture identified. DICTATED BY: Dmitriy Burch MD DATE/TIME DICTATED:01/08/181509 OPERATING ROOM TECHNOLOGIST:KERRI DATE/TIME TRANSCRIBED:01/08/181509 CONFIDENTIAL, DO NOT COPY WITHOUT APPROPRIATE AUTHORIZATION. <Electronically signed in Other Vendor System> SIGNED BY: Dmitriy Burch MD 01/08/18 260 Comments: 01/08/2018 4:06:16 PM Patient cover for potential cellulitis. Follow-up with primary care doctor. Return if any concerns worsening symptoms. Patient and agrees plan of care. She looks well on discharge. (Fletcher PARKS,Ashok) Departure Departure Disposition: HOME OR SELF CARE Condition: Stable Clinical Impression Primary Impression: Swelling of left hand Referrals: Linh Barreto MD (PCP/Family) Additional Instructions: Take Keflex as prescribed. Warm compresses. Ice. Follow up with PCP. Return if any concerns worsening symptoms. Please go over all results of today's visit with your primary care doctor. Contact your primary care doctor to let them know you were here in the emergency room. There may be nonspecific findings which may not be related to your visit today here in the emergency room but may require further evaluation and chronic monitoring by your primary care doctor. If you had a laceration today the chance of foreign body always remains. You should follow-up with your primary care doctor for recheck in 3-5 days for a wound check. If you had an x-ray done there is a chance that a fracture could have been missed on initial read and you should follow-up with your primary care doctor for repeat x-rays if symptoms persist. If your blood pressure was elevated here in the emergency room please have rechecked by yrn primary care doctor within the next 48. If you were prescribed a narcotic here in the emergency room or any type of controlled substances you're not allowed to drive while taking this medication or operate any type of heavy machinery. Narcotics can make you feel lightheaded dizziness nausea and can cause constipation. You may need to pickle processor a stool softener. Thank you for choosing [facility] emergency room. Please return to the emergency room immediately if you have any other concerns worsening of symptoms. Departure Forms: Customer Survey General Discharge Information Prescriptions: Current Visit Scripts Cephalexin (Keflex) 1 CAP PO TID #21 CAP (Ashok Crawford) PA/BAND HEAD SAW OPERATOR Co-Sign Statement Statement: ED Attending supervision documentation- [] I saw and evaluated the patient. I have also reviewed all the pertinent lab results and diagnostic results. I agree with the findings and the plan of care as documented in the PA's/BAND HEAD SAW OPERATOR's documentation. [X] I have reviewed the ED Record and agree with the PA's/BAND HEAD SAW OPERATOR's documentation. [] Additions or exceptions (if any) to the PAs/BAND HEAD SAW OPERATOR's note and plan are summarized below: [] (Petr Rondon DO)
--- NOTE | 2018-01-08 15:30 | RADIOLOGY REPORT ---
EXAMINATION: XR HAND, LEFT CLINICAL INFORMATION: Left hand swelling and mild pain COMPARISON: None TECHNIQUE: PA, lateral, and oblique views of the left hand. FINDINGS: Osseous alignment is anatomic. No acute fracture is seen. 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 Soft tissue swelling is noted adjacent to the metacarpals. IMPRESSION: Soft tissue swelling. No fracture identified.
[2018-01-08] MEDS ORDERED: KEFLEX500 M1 PO (15:35)
== END 2018-01-08 15:39 ==
LOC: ERH 12:54
DX: M79.89 Other specified soft tissue disorders (principal)
CPT/HCPCS: 73130-LT